=== PATIENT | male | born 1940 | race Caucasian/White ===

== ENCOUNTER 2016-12-27 12:24 | Outpatient (CLI) | payer MEDICARE, BC ==
[~2016-12-27] VITALS: Ht 185.4 cm; Wt 134.6 kg
[2016-12-27] VITALS (9 sets, daily range): BP systolic 115–146; BP diastolic 71–96; PULSE 63–85
[~2016-12-27 12:24] MED LIST: AMIODARONE PO; AMLOPIDINE; AMOXICILLIN 50500 MG PO; ASPIRIN 32325 MG/TAB PO; ASPIRIN 81M81 MG/TA2 PO; BUFFERED ASPIR325 M1 PO; CLOPIDOGREL; COZAAR100 MG PO; CRESTOR20 MG PO; ELIQUIS 5MG PO; FISH OIL CONC1000 MG PO; FLOMAX 0.40.4 MG/CAP PO; FOLIC ACID; IMODIUM 2MG CAPS2 MG PO; IRON; LASIX 40MG TABL40 MG PO; LISINOPRIL; MAX-EPA1000 MG PO; MULTIPLE VITAMI1 TAB PO; MVI; NITROQUICK0.4 MG SL; NORVASC 10MG10 MG PO; PACERONE200 MG PO; PLAVIX 75MG TAB75 MG PO; PRADAXA75 MG PO; PROAIR HFA0.09 MG/AC IH; PULMICORT0.5 MG/2 M IH; TENORMIN 2525 MG/TAB PO; ULTRAM 50MG TAB50 MG PO; VITAMIN C1 TAB PO; VITAMIN C500 MG PO; XALATAN EYE DROPS OD; XALATAN EYE DROPS OP; ZESTRIL40 MG PO
[2016-12-27 12:57] LABS: HEMATOCRIT 40.8 % (42.0-52.0); HEMOGLOBIN 13.2 g/dl (13.5-18.0); MEAN CELL VOLUME 93 fl (80.0-100.0); MEAN CORPUSCULAR HEMOGLOBIN 30 pg (27.0-31.0); MEAN CORPUSCULAR HGB CONC 32 g/dl (33.0-37.0); MEAN PLATELET VOLUME 9.2 fl (7.4-10.4); PLATELET COUNT 250 K/mm3 (130-400); RED BLOOD COUNT 4.39 M/mm3 (4.20-5.60); REDCELL DISTRIBUTION WIDTH-CV 14.5 % (11.5-14.5); WHITE BLOOD COUNT 5.6 K/mm3 (4.8-10.8)
[2016-12-27 12:58] LABS: INR 1.5 (0.8-3.0); PROTHROMBIN TIME 16.3 SECONDS (9.7-12.8)
[2016-12-27 13:15] LABS: CALCIUM 9.2 mg/dL (8.4-10.2); CREATININE, serum 1.06 mg/dL (0.66-1.25); POTASSIUM 4.2 mmol/L (3.4-5.0)
[2016-12-27] MEDS ORDERED: TEMOVATE0.05% TP (13:19)
[2016-12-27] MEDS ORDERED: PLAVIX 75MG TAB75 MG PO (13:31)
[2016-12-27 13:35] LABS: TOTAL IRON BINDING CAPACITY 413 ug/dL (261-462)
== END 2016-12-27 15:00 | disposition home or self-care (01) ==
LOC: COL.VAS 12:24
PROVIDERS: Internal Medicine Cardiovascular Disease
DX: I48.0 Paroxysmal atrial fibrillation (principal); E78.5 Hyperlipidemia, unspecified; I10 Essential (primary) hypertension; R90.89 Other abnormal findings on diagnostic imaging of central nervous system; N40.0 Benign prostatic hyperplasia without lower urinary tract symptoms; I25.10 Atherosclerotic heart disease of native coronary artery without angina pectoris; R94.31 Abnormal electrocardiogram [ECG] [EKG]; Z98.890 Other specified postprocedural states; Z96.652 Presence of left artificial knee joint; Z90.49 Acquired absence of other specified parts of digestive tract; Z95.828 Presence of other vascular implants and grafts; Z82.49 Family history of ischemic heart disease and other diseases of the circulatory system
CPT/HCPCS: J2704; J7030

== ENCOUNTER 2017-01-07 12:57 | Emergency (ER) | payer MEDICARE, BC ==
[~2017-01-07] VITALS: Ht 185.4 cm; Wt 134.1 kg
[~2017-01-07 12:57] MED LIST changes: +TEMOVATE0.05% TP
[2017-01-07 13:00] VITALS: BP 137/64; TEMP 98.2
[2017-01-07] MEDS ORDERED: NORCO 325 MG-51 TAB PO (16:20)
[2017-01-07] MEDS ORDERED: FLEXERIL 1010 MG/TAB PO (16:20)
[2017-01-07 16:49] VITALS: PULSE 62
== END 2017-01-07 16:50 | disposition home or self-care (01) ==
LOC: COL.ER 12:57
DX: M54.5 Low back pain (principal); I48.91 Unspecified atrial fibrillation
CPT/HCPCS: J1170; J3360

== ENCOUNTER → 2017-07-18 | Outpatient (CLI) | payer MEDICARE, BC ==
[~2017-07-18] MED LIST changes: +FLEXERIL 1010 MG/TAB PO; +NORCO 325 MG-51 TAB PO
[2017-07-18 12:59] LABS: HEMATOCRIT 41.1 % (42.0-52.0); HEMOGLOBIN 13.6 g/dl (13.5-18.0); MEAN CELL VOLUME 94 fl (80.0-100.0); MEAN CORPUSCULAR HEMOGLOBIN 31 pg (27.0-31.0); MEAN CORPUSCULAR HGB CONC 33 g/dl (33.0-37.0); MEAN PLATELET VOLUME 9.3 fl (7.4-10.4); PLATELET COUNT 209 K/mm3 (130-400); RED BLOOD COUNT 4.36 M/mm3 (4.20-5.60); WHITE BLOOD COUNT 5.3 K/mm3 (4.8-10.8)
[2017-07-18 13:45] LABS: ERYTHROCYTE SEDIMENTATION RATE 11 mm/hr (0-30)
== END ==
LOC: COL.LAB 12:28
PROVIDERS: Orthopaedic Surgery
DX: M25.561 Pain in right knee (principal); Z96.651 Presence of right artificial knee joint

== ENCOUNTER 2018-01-28 14:08 | Emergency (ER) | payer MEDICARE, BC ==
[~2018-01-28] VITALS: Ht 185.4 cm; Wt 131.8 kg
[2018-01-28 14:12] VITALS: TEMP 98.2
[2018-01-28 15:12] LABS: BASO % 0.5 % (0.0-2.0); EOS # 0.4 (0.0-0.7); GRAN % 71.4 % (42.2-75.2); HEMOGLOBIN 11.9 g/dl (13.5-18.0); LYMPH # 1.2 (1.2-3.4); LYMPH % 14.2 % (20.0-51.0); MEAN CELL VOLUME 95 fl (80.0-100.0); MEAN CORPUSCULAR HEMOGLOBIN 31 pg (27.0-31.0); MEAN CORPUSCULAR HGB CONC 33 g/dl (33.0-37.0); MEAN PLATELET VOLUME 9.8 fl (7.4-10.4); MONO # 0.7 (0.1-0.6); MONO % 8.4 % (1.7-9.3); PLATELET COUNT 239 K/mm3 (130-400); RED BLOOD COUNT 3.79 M/mm3 (4.20-5.60); REDCELL DISTRIBUTION WIDTH-CV 15.5 % (11.5-14.5)
[2018-01-28 15:26] LABS: BILIRUBIN,TOTAL 0.8 mg/dL (0.0-1.0); C-REACTIVE PROTEIN 6.3 mg/dL (0.0-0.9); CALCIUM 8.3 mg/dL (8.4-10.2); CREATININE, serum 1.21 mg/dL (0.66-1.25); POTASSIUM 3.8 mmol/L (3.4-5.0); TOTAL PROTEIN 7.1 gm/dL (6.4-8.2)
[2018-01-28] MEDS ORDERED: ULTRAM 50MG TAB50 MG PO (16:05)
[2018-01-28 17:45] VITALS: BP 135/89; PULSE 60
== END 2018-01-28 17:51 | disposition home or self-care (01) ==
LOC: COL.ER 14:08
PROVIDERS: Family Medicine
DX: K80.50 Calculus of bile duct without cholangitis or cholecystitis without obstruction (principal); I88.0 Nonspecific mesenteric lymphadenitis; I48.91 Unspecified atrial fibrillation; I25.10 Atherosclerotic heart disease of native coronary artery without angina pectoris; Z95.5 Presence of coronary angioplasty implant and graft; Z90.89 Acquired absence of other organs
CPT/HCPCS: J7030; Q9967

== ENCOUNTER → 2018-01-29 | Outpatient (CLI) | payer MEDICARE, BC | LOC: COL.RAD 10:50 | DX: K76.0 Fatty (change of) liver, not elsewhere classified (principal) ==

== ENCOUNTER → 2018-02-13 | Outpatient (CLI) | payer MEDICARE, BC | LOC: COL.RAD 06:09 | DX: R10.9 Unspecified abdominal pain (principal) | CPT/HCPCS: A9537 ==

== ENCOUNTER → 2018-03-11 | Outpatient (CLI) | payer MEDICARE, BC | LOC: COL.RAD 10:21 | DX: Q43.8 Other specified congenital malformations of intestine (principal); Z53.8 Procedure and treatment not carried out for other reasons ==

== ENCOUNTER → 2018-03-13 | Outpatient (CLI) | payer MEDICARE, BC | LOC: COL.RAD 08:44 | DX: K57.30 Diverticulosis of large intestine without perforation or abscess without bleeding (principal); Z90.49 Acquired absence of other specified parts of digestive tract ==

== ENCOUNTER → 2018-05-17 | Outpatient (CLI) | payer MEDICARE, BC ==
[2018-05-17] VITALS (14 sets, daily range): BP systolic 124–160; BP diastolic 53–84; PULSE 62–83
[~2018-05-17] VITALS: Ht 185.4 cm; Wt 132.7 kg
[~2018-05-17] MED LIST changes: +ALDACTONE 100M100 MG PO; +AMOXIL125 MG PO; +CARAFATE 1GM1 G PO; +COZAAR 50MG50 MG/TAB PO; +EPA FISH OIL1 SGL PO; +K-DUR 10 MEQ T10 MEQ PO; -MAX-EPA1000 MG PO; +MULTIPLE VITAMI1 CAP PO; -MULTIPLE VITAMI1 TAB PO; +PRIL40 PO; +PRILOSEC 20MG20 MG PO; +SYNTHROID0.1 MG/TAB PO
[2018-05-17 10:09] LABS: INR 1.5 (0.8-3.0)
== END ==
LOC: COL.RAD 05-16 09:45
PROVIDERS: Internal Medicine Gastroenterology
DX: K70.11 Alcoholic hepatitis with ascites (principal); K70.2 Alcoholic fibrosis and sclerosis of liver; K92.1 Melena

== ENCOUNTER 2018-06-24 08:43 | Outpatient (CLI) | payer MEDICARE, BC ==
[~2018-06-24] VITALS: Ht 185.4 cm; Wt 119.9 kg
[~2018-06-24 08:43] MED LIST changes: +CIPRO 250MG TA250 MG PO; +COUMADIN 1MG1 MG/TAB PO; -NITROQUICK0.4 MG SL; +NITROSTAT0.4 MG/TAB SL; +VITAMIN K0.1 MG PO
[2018-06-24 09:17] VITALS: BP 145/67; PULSE 90
[2018-06-24 11:20] VITALS: BP 124/51; PULSE 62; TEMP 97
[2018-06-24 12:45] VITALS: BP 111/53; PULSE 61; TEMP 98.6
== END 2018-06-24 15:00 | disposition home or self-care (01) ==
LOC: COL.RAD 08:43
DX: K70.31 Alcoholic cirrhosis of liver with ascites (principal)
CPT/HCPCS: P9047

== ENCOUNTER 2018-07-04 08:39 | Outpatient (CLI) | payer MEDICARE, BC ==
[~2018-07-04] VITALS: Ht 185.4 cm; Wt 121.5 kg
[2018-07-04 09:07] VITALS: BP 125/70; PULSE 81
[2018-07-04 11:18] VITALS: BP 123/41; PULSE 64; TEMP 97.9
[2018-07-04 13:05] VITALS: BP 117/46; PULSE 64; TEMP 98.1
[2018-07-04 13:19] LABS: PERITONEAL -POLYMORPHONUCLEAR 7.3 % (0-25); PERITONEAL FLUID RBC 2000 /mm3 (0-0)
== END 2018-07-04 13:33 | disposition home or self-care (01) ==
LOC: COL.RAD 08:39
PROVIDERS: Internal Medicine Gastroenterology
DX: R18.8 Other ascites (principal)
CPT/HCPCS: P9047

== ENCOUNTER 2018-07-15 12:48 | Outpatient (CLI) | payer MEDICARE, BC ==
[~2018-07-15] VITALS: Ht 185.4 cm; Wt 83.5 kg
[2018-07-15 13:13] VITALS: BP 144/66; PULSE 91
[2018-07-15 16:53] VITALS: BP 136/62; PULSE 88; TEMP 98
== END 2018-07-15 16:56 | disposition home or self-care (01) ==
LOC: COL.RAD 12:48
DX: K74.69 Other cirrhosis of liver (principal)
CPT/HCPCS: P9047

== ENCOUNTER 2018-07-26 12:40 | Outpatient (CLI) | payer MEDICARE, BC ==
[~2018-07-26] VITALS: Ht 185.4 cm; Wt 118.7 kg
[2018-07-26 13:01] VITALS: BP 148/72; PULSE 81
[2018-07-26 14:00] VITALS: BP 139/68; PULSE 76; TEMP 97.4
[2018-07-26 14:39] LABS: PERITONEAL -POLYMORPHONUCLEAR 5.4 % (0-25); PERITONEAL FLUID RBC 1000 /mm3 (0-0)
== END 2018-07-26 15:50 | disposition home or self-care (01) ==
LOC: COL.RAD 12:40
PROVIDERS: Internal Medicine Gastroenterology
DX: K74.69 Other cirrhosis of liver (principal)
CPT/HCPCS: P9047

== ENCOUNTER 2018-08-14 09:41 | Outpatient (CLI) | payer MEDICARE, BC ==
[~2018-08-14] VITALS: Ht 185.4 cm; Wt 116.4 kg
[2018-08-14 10:06] VITALS: BP 143/73; PULSE 79
[2018-08-14 12:11] VITALS: BP 112/51; PULSE 78; TEMP 97.2
[2018-08-14 12:41] LABS: PERITONEAL -POLYMORPHONUCLEAR 6.1 % (0-25); PERITONEAL FLUID RBC 1000 /mm3 (0-0)
== END 2018-08-14 14:36 | disposition home or self-care (01) ==
LOC: COL.RAD 09:41
PROVIDERS: Internal Medicine Gastroenterology
DX: K74.69 Other cirrhosis of liver (principal)
CPT/HCPCS: P9047

== ENCOUNTER 2018-08-23 09:35 | Outpatient (CLI) | payer MEDICARE, BC ==
[~2018-08-23] VITALS: Ht 185.4 cm; Wt 115.5 kg
[2018-08-23 09:51] VITALS: BP 141/70; PULSE 69
[2018-08-23 11:30] VITALS: BP 117/49; PULSE 57; TEMP 97.7
[2018-08-23 11:31] LABS: PERITONEAL -POLYMORPHONUCLEAR 5.5 % (0-25); PERITONEAL FLUID RBC 0 /mm3 (0-0)
== END 2018-08-23 13:15 | disposition home or self-care (01) ==
LOC: COL.RAD 09:35
PROVIDERS: Internal Medicine Gastroenterology
DX: K74.69 Other cirrhosis of liver (principal)
CPT/HCPCS: P9047

== ENCOUNTER 2018-09-02 09:41 | Outpatient (CLI) | payer MEDICARE, BC ==
[~2018-09-02] VITALS: Ht 185.4 cm; Wt 117.0 kg
[2018-09-02 09:55] VITALS: BP 145/70; PULSE 83
[2018-09-02 11:20] VITALS: BP 120/42; PULSE 57; TEMP 97.3
[2018-09-02 13:41] VITALS: BP 107/36; PULSE 57
--- NOTE | 2018-09-02 13:50 | NUR ---
Pt pina albumin well. Pt discharged per ambulation by nurse with .
== END 2018-09-02 14:25 | disposition home or self-care (01) ==
LOC: COL.RAD 09:41
PROVIDERS: Internal Medicine Gastroenterology
DX: K74.69 Other cirrhosis of liver (principal)
CPT/HCPCS: P9047

== ENCOUNTER 2018-09-13 09:30 | Outpatient (CLI) | payer MEDICARE, BC ==
[~2018-09-13] VITALS: Ht 185.4 cm; Wt 110.0 kg
[2018-09-13 10:07] VITALS: BP 154/72; PULSE 76
[2018-09-13 11:20] VITALS: BP 138/52; PULSE 65; TEMP 97.5
[2018-09-13 11:38] LABS: PERITONEAL -POLYMORPHONUCLEAR 6.9 % (0-25); PERITONEAL FLUID RBC 0 /mm3 (0-0)
[2018-09-13 13:02] VITALS: BP 118/43; PULSE 62; TEMP 97.4
== END 2018-09-13 13:10 | disposition home or self-care (01) ==
LOC: COL.RAD 09:30
PROVIDERS: Internal Medicine Gastroenterology
DX: K74.69 Other cirrhosis of liver (principal)
CPT/HCPCS: P9047

== ENCOUNTER 2018-09-23 09:48 | Outpatient (CLI) | payer MEDICARE, BC ==
[~2018-09-23] VITALS: Ht 185.4 cm; Wt 121.2 kg
[2018-09-23 10:04] VITALS: BP 136/78; PULSE 64
[2018-09-23 12:10] LABS: PERITONEAL -POLYMORPHONUCLEAR 8.2 % (0-25); PERITONEAL FLUID RBC 0 /mm3 (0-0)
[2018-09-23 12:30] VITALS: BP 119/46; PULSE 60; TEMP 97.5
== END 2018-09-23 14:35 | disposition home or self-care (01) ==
LOC: COL.RAD 09:48 → EUO 09:48 → COL.RAD 14:35
PROVIDERS: Internal Medicine Gastroenterology
DX: K74.69 Other cirrhosis of liver (principal)
CPT/HCPCS: P9047

== ENCOUNTER 2018-10-03 07:45 | Outpatient (CLI) | payer MEDICARE, BC ==
[~2018-10-03] VITALS: Ht 185.4 cm; Wt 112.5 kg
[2018-10-03 10:30] VITALS: BP 140/62; PULSE 68; TEMP 98
[2018-10-04 15:25] LABS: PERITONEAL -POLYMORPHONUCLEAR 8.9 % (0-25); PERITONEAL FLUID RBC 0 /mm3 (0-0)
== END 2018-10-03 14:15 | disposition home or self-care (01) ==
LOC: COL.RAD 07:45
PROVIDERS: Internal Medicine Gastroenterology
DX: K74.60 Unspecified cirrhosis of liver (principal)
CPT/HCPCS: P9047

== ENCOUNTER 2018-10-14 09:46 | Outpatient (CLI) | payer MEDICARE, BC ==
[~2018-10-14] VITALS: Ht 185.4 cm; Wt 123.6 kg
[2018-10-14 10:05] VITALS: BP 134/68; PULSE 73
[2018-10-14 11:56] LABS: PERITONEAL -POLYMORPHONUCLEAR 9.3 % (0-25); PERITONEAL FLUID RBC 0 /mm3 (0-0)
[2018-10-14 12:10] VITALS: BP 150/67; PULSE 66; TEMP 97.9
[2018-10-14 12:39] VITALS: BP 120/59; PULSE 67
[2018-10-14 13:17] VITALS: BP 122/52; PULSE 63; TEMP 97
[2018-10-14 13:52] VITALS: BP 134/54; PULSE 63; TEMP 98
== END 2018-10-14 14:00 | disposition home or self-care (01) ==
LOC: COL.RAD 09:46
PROVIDERS: Internal Medicine Gastroenterology
DX: K74.69 Other cirrhosis of liver (principal)
CPT/HCPCS: P9047

== ENCOUNTER 2018-10-23 08:44 | Outpatient (CLI) | payer MEDICARE, BC ==
[~2018-10-23] VITALS: Ht 185.4 cm; Wt 121.7 kg
[2018-10-23 08:59] VITALS: BP 148/67; PULSE 80
[2018-10-23] MEDS ORDERED: LASIX 40MG TABL40 MG PO (08:59)
[2018-10-23 11:14] VITALS: BP 106/47; PULSE 57; TEMP 98
[2018-10-23 11:22] LABS: PERITONEAL -POLYMORPHONUCLEAR 10.6 % (0-25); PERITONEAL FLUID RBC 0 /mm3 (0-0)
== END 2018-10-23 15:05 | disposition home or self-care (01) ==
LOC: COL.RAD 08:44
PROVIDERS: Internal Medicine Gastroenterology
DX: K74.69 Other cirrhosis of liver (principal)
CPT/HCPCS: P9047

== ENCOUNTER 2018-10-31 09:33 | Outpatient (CLI) | payer MEDICARE, BC ==
[~2018-10-31] VITALS: Ht 185.4 cm; Wt 118.1 kg
[2018-10-31 10:01] VITALS: BP 145/55; PULSE 75
[2018-10-31 11:48] LABS: PERITONEAL -POLYMORPHONUCLEAR 6.9 % (0-25); PERITONEAL FLUID RBC 0 /mm3 (0-0)
[2018-10-31 12:11] VITALS: BP 111/61; PULSE 60; TEMP 97.6
== END 2018-10-31 13:50 | disposition home or self-care (01) ==
LOC: COL.RAD 09:33
PROVIDERS: Internal Medicine Gastroenterology
DX: K74.69 Other cirrhosis of liver (principal)
CPT/HCPCS: P9047

== ENCOUNTER 2018-11-11 10:48 | Outpatient (CLI) | payer MEDICARE, BC ==
[~2018-11-11] VITALS: Ht 185.4 cm; Wt 121.7 kg
[2018-11-11 11:49] VITALS: BP 153/63; PULSE 84
--- NOTE | 2018-11-11 14:15 | NUR ---
Report taken from FOL Ayala in Radiology. Vital Signs BP: 125/40 O2: 100% HR: 69 Fluid removed was 9500 mL. Procedure done by Dr. Fishman. Color: yellow
[2018-11-11 14:16] LABS: PERITONEAL FLUID RBC 1000 /mm3 (0-0)
--- NOTE | 2018-11-11 14:17 | NUR ---
URINE COLOR YELLOW AND CLEAR
== END 2018-11-11 16:32 | disposition home or self-care (01) ==
LOC: COL.RAD 10:48
PROVIDERS: Internal Medicine Gastroenterology
DX: K74.69 Other cirrhosis of liver (principal)
CPT/HCPCS: P9047

== ENCOUNTER 2018-11-22 11:36 | Outpatient (CLI) | payer MEDICARE, BC ==
[~2018-11-22] VITALS: Ht 185.4 cm; Wt 121.8 kg
[2018-11-22 12:06] VITALS: BP 138/65; PULSE 78
[2018-11-22 14:28] LABS: PERITONEAL -POLYMORPHONUCLEAR 12.2 % (0-25); PERITONEAL FLUID RBC 1000 /mm3 (0-0)
[2018-11-22 14:31] VITALS: BP 120/40; PULSE 66; TEMP 97.6
== END 2018-11-22 16:00 | disposition home or self-care (01) ==
LOC: COL.RAD 11:36
PROVIDERS: Internal Medicine Gastroenterology
DX: K74.69 Other cirrhosis of liver (principal); K76.6 Portal hypertension
CPT/HCPCS: P9047

== ENCOUNTER 2018-12-03 09:40 | Outpatient (CLI) | payer MEDICARE, BC ==
[~2018-12-03] VITALS: Ht 185.4 cm; Wt 114.0 kg
[2018-12-03 10:28] VITALS: BP 143/69; PULSE 90
--- NOTE | 2018-12-03 10:36 | NUR ---
PT TAKEN TO ULTRASOUND, HE WILL THEN GO TO FOR ALBUMIN INFUSION
[2018-12-03 11:50] LABS: PERITONEAL -POLYMORPHONUCLEAR 14.7 % (0-25); PERITONEAL FLUID RBC 0 /mm3 (0-0)
[2018-12-03 12:35] VITALS: BP 105/40; PULSE 64; TEMP 97.4
== END 2018-12-03 15:16 | disposition home or self-care (01) ==
LOC: COL.RAD 09:40
PROVIDERS: Internal Medicine Gastroenterology
DX: K74.69 Other cirrhosis of liver (principal)
CPT/HCPCS: P9047

== ENCOUNTER 2018-12-13 09:34 | Outpatient (CLI) | payer MEDICARE, BC ==
[~2018-12-13] VITALS: Ht 185.4 cm; Wt 112.3 kg
[2018-12-13 09:50] VITALS: BP 132/56; PULSE 93
[2018-12-13 12:00] VITALS: BP 103/69; PULSE 87; TEMP 98.4
[2018-12-13 12:36] LABS: PERITONEAL -POLYMORPHONUCLEAR 11.4 % (0-25); PERITONEAL FLUID RBC 0 /mm3 (0-0)
== END 2018-12-13 14:30 | disposition home or self-care (01) ==
LOC: COL.RAD 09:34
PROVIDERS: Internal Medicine Gastroenterology
DX: K74.69 Other cirrhosis of liver (principal)
CPT/HCPCS: P9047

== ENCOUNTER 2018-12-23 09:39 | Outpatient (CLI) | payer MEDICARE, BC ==
[~2018-12-23] VITALS: Ht 185.4 cm; Wt 114.1 kg
[2018-12-23 09:55] VITALS: BP 140/70; PULSE 90
[2018-12-23 11:36] LABS: PERITONEAL -POLYMORPHONUCLEAR 11.7 % (0-25); PERITONEAL FLUID RBC 1000 /mm3 (0-0)
[2018-12-23 13:10] VITALS: BP 107/56; PULSE 75; TEMP 98
== END 2018-12-23 14:07 | disposition home or self-care (01) ==
LOC: COL.RAD 09:39
PROVIDERS: Internal Medicine Gastroenterology
DX: K74.69 Other cirrhosis of liver (principal)
CPT/HCPCS: P9047

== ENCOUNTER 2019-01-02 09:30 | Outpatient (CLI) | payer MEDICARE, BC ==
[~2019-01-02] VITALS: Ht 185.4 cm; Wt 116.1 kg
[2019-01-02 09:53] VITALS: BP 126/63; PULSE 85
[2019-01-02 12:04] LABS: PERITONEAL -POLYMORPHONUCLEAR 9.7 % (0-25); PERITONEAL FLUID RBC 0 /mm3 (0-0)
[2019-01-02 12:38] VITALS: BP 124/48; PULSE 61; TEMP 97.4
== END 2019-01-02 14:14 | disposition home or self-care (01) ==
LOC: COL.RAD 09:30
PROVIDERS: Internal Medicine Gastroenterology
DX: K74.69 Other cirrhosis of liver (principal)
CPT/HCPCS: P9047

== ENCOUNTER 2019-01-13 11:33 | Outpatient (CLI) | payer MEDICARE, BC ==
[~2019-01-13] VITALS: Ht 185.4 cm; Wt 115.3 kg
[2019-01-13 11:53] VITALS: BP 142/65; PULSE 76
[2019-01-13 13:21] LABS: PERITONEAL -POLYMORPHONUCLEAR 9.5 % (0-25); PERITONEAL FLUID RBC 1000 /mm3 (0-0)
[2019-01-13 13:32] VITALS: BP 135/47; PULSE 69; TEMP 98.6
== END 2019-01-13 15:17 | disposition home or self-care (01) ==
LOC: COL.RAD 11:33
PROVIDERS: Internal Medicine Gastroenterology
DX: K74.60 Unspecified cirrhosis of liver (principal)
CPT/HCPCS: P9047

== ENCOUNTER 2019-01-23 09:38 | Outpatient (CLI) | payer MEDICARE, BC ==
[~2019-01-23] VITALS: Ht 185.4 cm; Wt 125.9 kg
[2019-01-23 09:52] VITALS: BP 147/62; PULSE 90
[2019-01-23 11:46] VITALS: BP 136/47; PULSE 69; TEMP 97.6
[2019-01-23 12:15] LABS: PERITONEAL -POLYMORPHONUCLEAR 14.1 % (0-25); PERITONEAL FLUID RBC 1000 /mm3 (0-0)
== END 2019-01-23 14:01 | disposition home or self-care (01) ==
LOC: COL.RAD 09:38
PROVIDERS: Internal Medicine Gastroenterology
DX: K74.69 Other cirrhosis of liver (principal)
CPT/HCPCS: P9047

== ENCOUNTER 2019-02-03 09:54 | Outpatient (CLI) | payer MEDICARE, BC ==
[~2019-02-03] VITALS: Ht 185.4 cm; Wt 126.2 kg
[2019-02-03 10:16] VITALS: BP 129/62; PULSE 72
[2019-02-03 11:30] VITALS: BP 129/49; PULSE 70
[2019-02-03 11:45] LABS: PERITONEAL -POLYMORPHONUCLEAR 14.7 % (0-25); PERITONEAL FLUID RBC 1000 /mm3 (0-0)
--- NOTE | 2019-02-03 13:30 | NUR ---
INFUSION COMPLETED IV D'CD INTACT, PT DISCHARGED AMB. WITH
== END 2019-02-03 13:56 | disposition home or self-care (01) ==
LOC: COL.RAD 09:54
PROVIDERS: Internal Medicine Gastroenterology
DX: K74.69 Other cirrhosis of liver (principal)
CPT/HCPCS: P9047

== ENCOUNTER 2019-02-13 09:27 | Outpatient (CLI) | payer MEDICARE, BC ==
[~2019-02-13] VITALS: Ht 185.4 cm; Wt 124.4 kg
[2019-02-13 09:58] VITALS: BP 130/69; PULSE 79
[2019-02-13 11:49] VITALS: PULSE 67; TEMP 97.7
--- NOTE | 2019-02-13 13:30 | NUR ---
INFUSION COMPLETED, IV D'CD INTACT, PT DISCHARGED AMB. WITH
[2019-02-13 13:52] LABS: PERITONEAL -POLYMORPHONUCLEAR 11.2 % (0-25); PERITONEAL FLUID RBC 0 /mm3 (0-0)
== END 2019-02-13 15:51 | disposition home or self-care (01) ==
LOC: COL.RAD 09:27
PROVIDERS: Internal Medicine Gastroenterology
DX: K74.69 Other cirrhosis of liver (principal)
CPT/HCPCS: P9047

== ENCOUNTER 2019-02-24 08:44 | Outpatient (CLI) | payer MEDICARE, BC ==
[~2019-02-24] VITALS: Ht 185.4 cm; Wt 119.0 kg
[2019-02-24 08:59] VITALS: BP 145/64; PULSE 89
[2019-02-24 11:20] VITALS: BP 133/42; PULSE 71; TEMP 97.5
--- NOTE | 2019-02-24 11:50 | NUR ---
PT AMB. FROM ULTRASOUND WITH TECH FOR ALBUMIN INFUSION, HAS INT TO LEFT HAND FLUSHES WELL. INFUSION AT 180CC/HR, TOLERATED WELL, NO C/O, DISCHARGED AMB. WTIH AFTER INFUSION
== END 2019-02-24 15:00 | disposition home or self-care (01) ==
LOC: COL.RAD 08:44
DX: K74.69 Other cirrhosis of liver (principal)
CPT/HCPCS: P9047

== ENCOUNTER 2019-03-06 08:44 | Outpatient (CLI) | payer MEDICARE, BC ==
[~2019-03-06] VITALS: Ht 185.4 cm; Wt 118.4 kg
[2019-03-06] MEDS ORDERED: FOLIC ACID 11 MG/TA1 PO (09:13)
[2019-03-06 09:16] VITALS: BP 142/67; PULSE 83
[2019-03-06 11:38] VITALS: BP 123/61; PULSE 64; TEMP 97.9
[2019-03-06 13:22] LABS: PERITONEAL -POLYMORPHONUCLEAR 11.5 % (0-25); PERITONEAL FLUID RBC 1000 /mm3 (0-0)
== END 2019-03-06 12:32 | disposition home or self-care (01) ==
LOC: COL.RAD 08:44
PROVIDERS: Internal Medicine Gastroenterology
DX: K74.69 Other cirrhosis of liver (principal)
CPT/HCPCS: P9047

== ENCOUNTER → 2019-03-07 | Outpatient (CLI) | payer MEDICARE, BC ==
[~2019-03-07] MED LIST changes: +FOLIC ACID 11 MG/TA1 PO
== END ==
LOC: MC.RAD 03-06 14:00
DX: N62 Hypertrophy of breast (principal); N64.4 Mastodynia

== ENCOUNTER 2019-03-17 09:56 | Outpatient (CLI) | payer MEDICARE, BC ==
[~2019-03-17] VITALS: Ht 185.4 cm; Wt 109.1 kg
[2019-03-17 10:13] VITALS: BP 134/70; PULSE 87
[2019-03-17 12:29] VITALS: BP 11/46; PULSE 65
[2019-03-17 13:00] LABS: PERITONEAL FLUID RBC 1000 /mm3 (0-0)
--- NOTE | 2019-03-17 13:16 | NUR ---
INT discontinued intact.
== END 2019-03-17 13:17 | disposition home or self-care (01) ==
LOC: COL.RAD 09:56
PROVIDERS: Internal Medicine Gastroenterology
DX: R18.8 Other ascites (principal); K74.60 Unspecified cirrhosis of liver
CPT/HCPCS: P9047

== ENCOUNTER 2019-03-28 09:31 | Outpatient (CLI) | payer MEDICARE, BC ==
[~2019-03-28] VITALS: Ht 185.4 cm; Wt 108.3 kg
[2019-03-28 09:59] VITALS: BP 124/50; PULSE 88
[2019-03-28 11:27] LABS: PERITONEAL -POLYMORPHONUCLEAR 15.3 % (0-25); PERITONEAL FLUID RBC 1000 /mm3 (0-0)
[2019-03-28 12:33] VITALS: BP 124/52; PULSE 81
[2019-03-28 12:34] VITALS: BP 124/52; PULSE 81; TEMP 97.3
== END 2019-03-28 12:58 | disposition home or self-care (01) ==
LOC: COL.RAD 09:31
PROVIDERS: Internal Medicine Gastroenterology
DX: K74.60 Unspecified cirrhosis of liver (principal)
CPT/HCPCS: P9047

== ENCOUNTER 2019-04-04 09:01 | Day surgery (SDC) | payer MEDICARE, BC ==
[2019-04-04] VITALS (9 sets, daily range): BP systolic 106–125; BP diastolic 50–62; PULSE 82–105
[~2019-04-04] VITALS: Ht 185.4 cm; Wt 112.0 kg
[2019-04-04 09:34] LABS: MEAN CELL VOLUME 99 fl (80.0-100.0); MEAN CORPUSCULAR HGB CONC 33 g/dl (33.0-37.0); PLATELET COUNT 130 K/mm3 (130-400); RED BLOOD COUNT 2.67 M/mm3 (4.20-5.60); REDCELL DISTRIBUTION WIDTH-CV 15.4 % (11.5-14.5)
[2019-04-04 09:35] LABS: HEMATOCRIT 26.5 % (42.0-52.0); HEMOGLOBIN 8.7 g/dl (13.5-18.0); MEAN CORPUSCULAR HEMOGLOBIN 33 pg (27.0-31.0)
[2019-04-04 09:39] LABS: INR 2.1 (0.8-3.0); PROTHROMBIN TIME 24.9 SECONDS (9.7-12.8)
[2019-04-04] MEDS ORDERED: COUMADIN 3MG3 MG/TAB PO (09:52)
[2019-04-04 10:00] LABS: CALCIUM 8.6 mg/dL (8.4-10.2); CREATININE, serum 1.36 (0.66-1.25); POTASSIUM 4.1 mmol/L (3.4-5.0)
[2019-04-04] MEDS ORDERED: BETAPACE 80MG80 MG PO (10:08)
--- NOTE | 2019-04-04 10:23 | NUR ---
Report received from Miriam Diaz.
--- NOTE | 2019-04-04 12:15 | NUR ---
Discharge instructions given to pt.Pt verbalizes understanding.INT removed,catheter tip intact.Pt escorted out via wheelchair by this nurse.
== END 2019-04-04 12:56 | disposition home or self-care (01) ==
LOC: COL.CAR 09:01
PROVIDERS: Internal Medicine Cardiovascular Disease
DX: I48.0 Paroxysmal atrial fibrillation (principal); I08.1 Rheumatic disorders of both mitral and tricuspid valves; N40.0 Benign prostatic hyperplasia without lower urinary tract symptoms; I25.10 Atherosclerotic heart disease of native coronary artery without angina pectoris; E78.5 Hyperlipidemia, unspecified; K74.60 Unspecified cirrhosis of liver; I10 Essential (primary) hypertension; G47.33 Obstructive sleep apnea (adult) (pediatric); G89.29 Other chronic pain; M19.90 Unspecified osteoarthritis, unspecified site; Z96.653 Presence of artificial knee joint, bilateral; Z88.8 Allergy status to other drugs, medicaments and biological substances; Z79.01 Long term (current) use of anticoagulants; Z87.891 Personal history of nicotine dependence; Z82.49 Family history of ischemic heart disease and other diseases of the circulatory system
CPT/HCPCS: J2250; J2704; J7120

== ENCOUNTER 2019-04-08 09:29 | Outpatient (CLI) | payer MEDICARE, BC ==
[~2019-04-08] VITALS: Ht 185.4 cm; Wt 107.2 kg
[~2019-04-08 09:29] MED LIST changes: +BETAPACE 80MG80 MG PO; +COUMADIN 3MG3 MG/TAB PO
[2019-04-08] MEDS ORDERED: BETAPACE 80MG80 MG PO (09:41)
[2019-04-08 09:45] VITALS: BP 137/57; PULSE 59
[2019-04-08 13:04] VITALS: BP 115/74; PULSE 59; TEMP 97.2
[2019-04-08 15:01] LABS: PERITONEAL -POLYMORPHONUCLEAR 11.8 % (0-25); PERITONEAL FLUID RBC 1000 /mm3 (0-0)
== END 2019-04-08 13:05 | disposition home or self-care (01) ==
LOC: COL.RAD 09:29
PROVIDERS: Internal Medicine Gastroenterology
DX: K74.69 Other cirrhosis of liver (principal)
CPT/HCPCS: P9047

== ENCOUNTER 2019-04-18 09:40 | Outpatient (CLI) | payer MEDICARE, BC ==
[~2019-04-18] VITALS: Ht 185.4 cm; Wt 113.8 kg
[2019-04-18 10:01] VITALS: BP 127/65; PULSE 83
[2019-04-18 11:12] LABS: PERITONEAL -POLYMORPHONUCLEAR 14.4 % (0-25); PERITONEAL FLUID RBC 1000 /mm3 (0-0)
[2019-04-18 11:30] VITALS: BP 127/57; PULSE 76; TEMP 97.5
== END 2019-04-18 13:33 | disposition home or self-care (01) ==
LOC: COL.RAD 09:40
PROVIDERS: Internal Medicine Gastroenterology
DX: K74.69 Other cirrhosis of liver (principal)
CPT/HCPCS: P9047

== ENCOUNTER 2019-04-28 09:24 | Outpatient (CLI) | payer MEDICARE, BC ==
[~2019-04-28] VITALS: Ht 185.4 cm; Wt 106.0 kg
[2019-04-28 09:42] VITALS: BP 125/86; PULSE 99
[2019-04-28 11:07] LABS: PERITONEAL -POLYMORPHONUCLEAR 13.9 % (0-25); PERITONEAL FLUID RBC 1000 /mm3 (0-0)
[2019-04-28 11:14] VITALS: BP 119/45; PULSE 76; TEMP 97.3
== END 2019-04-28 13:05 | disposition home or self-care (01) ==
LOC: COL.RAD 09:24
PROVIDERS: Internal Medicine Gastroenterology
DX: R18.8 Other ascites (principal)
CPT/HCPCS: P9047

== ENCOUNTER 2019-05-09 09:32 | Outpatient (CLI) | payer MEDICARE, BC ==
[~2019-05-09] VITALS: Ht 185.4 cm; Wt 105.4 kg
[2019-05-09 09:57] VITALS: BP 116/60; PULSE 96
[2019-05-09 11:42] LABS: PERITONEAL -POLYMORPHONUCLEAR 14.4 % (0-25); PERITONEAL FLUID RBC 2000 /mm3 (0-0)
[2019-05-09 11:45] VITALS: BP 104/41; PULSE 75; TEMP 97.4
== END 2019-05-09 12:40 | disposition home or self-care (01) ==
LOC: COL.RAD 09:32
PROVIDERS: Internal Medicine Gastroenterology
DX: K74.69 Other cirrhosis of liver (principal)
CPT/HCPCS: P9047

== ENCOUNTER 2019-05-23 10:52 | Outpatient (CLI) | payer MEDICARE, BC ==
[~2019-05-23] VITALS: Ht 185.4 cm; Wt 106.8 kg
[2019-05-23 11:16] VITALS: BP 138/67; PULSE 95
[2019-05-23 13:53] LABS: PERITONEAL -POLYMORPHONUCLEAR 11.7 % (0-25); PERITONEAL FLUID RBC 3000 /mm3 (0-0)
[2019-05-23 14:19] VITALS: BP 172/52; PULSE 97; TEMP 97.4
== END 2019-05-23 15:16 | disposition home or self-care (01) ==
LOC: COL.RAD 10:52
PROVIDERS: Internal Medicine Gastroenterology
DX: K70.31 Alcoholic cirrhosis of liver with ascites (principal); R16.1 Splenomegaly, not elsewhere classified
CPT/HCPCS: P9047

== ENCOUNTER → 2019-06-03 | Outpatient (CLI) | payer MEDICARE, BC ==
[~2019-06-03] VITALS: Ht 185.4 cm; Wt 114.6 kg
[2019-06-03 09:57] VITALS: BP 140/77; PULSE 93
[2019-06-03 12:33] LABS: PERITONEAL -POLYMORPHONUCLEAR 13.7 % (0-25); PERITONEAL FLUID RBC 1000 /mm3 (0-0)
[2019-06-03 13:04] VITALS: BP 135/64; PULSE 81; TEMP 97.4
== END ==
LOC: COL.RAD 09:28
PROVIDERS: Internal Medicine Gastroenterology
DX: K74.69 Other cirrhosis of liver (principal)
CPT/HCPCS: P9047

== ENCOUNTER 2019-06-13 09:39 | Outpatient (CLI) | payer MEDICARE, BC ==
[~2019-06-13] VITALS: Ht 185.4 cm; Wt 114.4 kg
[2019-06-13 09:57] VITALS: BP 135/59; PULSE 101
[2019-06-13 10:49] LABS: PERITONEAL -POLYMORPHONUCLEAR 15.6 % (0-25); PERITONEAL FLUID RBC 2000 /mm3 (0-0)
[2019-06-13 12:35] VITALS: BP 104/46; PULSE 98; TEMP 97.8
== END 2019-06-13 13:50 | disposition home or self-care (01) ==
LOC: COL.RAD 09:39
PROVIDERS: Internal Medicine Gastroenterology
DX: K74.69 Other cirrhosis of liver (principal)
CPT/HCPCS: P9047

== ENCOUNTER 2019-06-25 09:35 | Outpatient (CLI) | payer MEDICARE, BC ==
[~2019-06-25] VITALS: Ht 185.4 cm; Wt 106.6 kg
[2019-06-25 09:51] VITALS: BP 127/69; PULSE 92
[2019-06-25] MEDS ORDERED: PEPCID 20MG TAB20 MG PO (09:58)
[2019-06-25] MEDS ORDERED: BETAPACE 80MG80 MG PO (09:58)
[2019-06-25 11:14] LABS: PERITONEAL FLUID RBC 1000 /mm3 (0-0)
[2019-06-25 12:32] VITALS: BP 91/60; PULSE 79
--- NOTE | 2019-06-25 14:30 | NUR ---
PT is tolerating albumin infusion well, paracentesis puncture site visualized, it is covered with a dry and clean bandaid, no bleeding or other drainage noted.
== END 2019-06-25 14:56 | disposition home or self-care (01) ==
LOC: COL.RAD 09:35
PROVIDERS: Internal Medicine Gastroenterology
DX: K74.69 Other cirrhosis of liver (principal)
CPT/HCPCS: P9047

== ENCOUNTER 2019-07-07 09:26 | Outpatient (CLI) | payer MEDICARE, BC ==
[~2019-07-07] VITALS: Ht 185.4 cm; Wt 113.4 kg
[~2019-07-07 09:26] MED LIST changes: +PEPCID 20MG TAB20 MG PO
[2019-07-07 09:49] VITALS: BP 111/60; PULSE 99
[2019-07-07 12:29] LABS: PERITONEAL -POLYMORPHONUCLEAR 15.2 % (0-25); PERITONEAL FLUID RBC 1000 /mm3 (0-0)
[2019-07-07 12:30] VITALS: BP 104/50; PULSE 75; TEMP 97.5
== END 2019-07-07 14:29 | disposition home or self-care (01) ==
LOC: COL.RAD 09:26
PROVIDERS: Internal Medicine Gastroenterology
DX: K74.69 Other cirrhosis of liver (principal)
CPT/HCPCS: P9047

== ENCOUNTER 2019-07-21 09:19 | Outpatient (CLI) | payer MEDICARE, BC ==
[~2019-07-21] VITALS: Ht 185.4 cm; Wt 114.7 kg
[2019-07-21 09:57] VITALS: BP 120/71; PULSE 90
[2019-07-21 11:42] VITALS: BP 122/50; PULSE 78; TEMP 98.2
[2019-07-21 11:55] LABS: PERITONEAL -POLYMORPHONUCLEAR 11.6 % (0-25); PERITONEAL FLUID RBC 1000 /mm3 (0-0)
== END 2019-07-21 14:13 | disposition home or self-care (01) ==
LOC: COL.RAD 09:19
PROVIDERS: Internal Medicine Gastroenterology
DX: K74.69 Other cirrhosis of liver (principal)
CPT/HCPCS: P9047

== ENCOUNTER 2019-08-04 08:47 | Outpatient (CLI) | payer MEDICARE, BC ==
[~2019-08-04] VITALS: Ht 185.4 cm; Wt 104.8 kg
[2019-08-04 09:03] VITALS: BP 149/70; PULSE 99
[2019-08-04 11:42] LABS: PERITONEAL FLUID RBC 1000 /mm3 (0-0)
[2019-08-04 12:58] VITALS: BP 125/59; PULSE 72; TEMP 97.7
== END 2019-08-04 12:59 | disposition home or self-care (01) ==
LOC: COL.RAD 08:47
PROVIDERS: Internal Medicine Gastroenterology
DX: K74.69 Other cirrhosis of liver (principal)
CPT/HCPCS: P9047

== ENCOUNTER 2019-08-18 09:35 | Outpatient (CLI) | payer MEDICARE, BC ==
[~2019-08-18] VITALS: Ht 185.4 cm; Wt 103.6 kg
[2019-08-18 10:11] VITALS: BP 146/76; PULSE 86
[2019-08-18 11:48] LABS: PERITONEAL -POLYMORPHONUCLEAR 14.1 % (0-25); PERITONEAL FLUID RBC 1000 /mm3 (0-0)
[2019-08-18 13:25] VITALS: BP 117/96; PULSE 73; TEMP 97.4
== END 2019-08-18 13:26 | disposition home or self-care (01) ==
LOC: COL.RAD 09:35
PROVIDERS: Internal Medicine Gastroenterology
DX: K74.69 Other cirrhosis of liver (principal)
CPT/HCPCS: P9047

== ENCOUNTER 2019-09-02 09:30 | Outpatient (CLI) | payer MEDICARE, BC ==
[~2019-09-02] VITALS: Ht 185.4 cm; Wt 112.0 kg
[2019-09-02 09:43] VITALS: BP 142/44; PULSE 100
[2019-09-02 11:02] LABS: PERITONEAL FLUID RBC 2000 /mm3 (0-0)
[2019-09-02 11:25] VITALS: BP 128/65; PULSE 83; TEMP 97.4
== END 2019-09-02 14:09 | disposition home or self-care (01) ==
LOC: COL.RAD 09:30
PROVIDERS: Internal Medicine Gastroenterology
DX: K74.60 Unspecified cirrhosis of liver (principal)
CPT/HCPCS: P9047

== ENCOUNTER 2019-09-22 08:48 | Outpatient (CLI) | payer MEDICARE, BC ==
[~2019-09-22] VITALS: Ht 185.4 cm; Wt 111.4 kg
[2019-09-22 09:00] VITALS: BP 139/75; PULSE 98
[2019-09-22 10:39] VITALS: BP 148/72; PULSE 78; TEMP 97.7
[2019-09-22 11:01] LABS: PERITONEAL -POLYMORPHONUCLEAR 14.6 % (0-25); PERITONEAL FLUID RBC 3000 /mm3 (0-0)
--- NOTE | 2019-09-22 11:42 | NUR ---
PT WAS DRAINED BY DR LAIRD OF 7700CC YELLOW FLUID DURING HIS PARACENTESIS.
== END 2019-09-22 12:13 | disposition home or self-care (01) ==
LOC: EUO 08:48 → COL.RAD 08:48
PROVIDERS: Internal Medicine Gastroenterology
DX: R18.8 Other ascites (principal); K74.69 Other cirrhosis of liver
CPT/HCPCS: P9047

== ENCOUNTER 2019-10-13 11:33 | Outpatient (CLI) | payer MEDICARE, BC ==
[~2019-10-13] VITALS: Ht 185.4 cm; Wt 109.8 kg
[2019-10-13 11:51] VITALS: BP 158/81; PULSE 93
[2019-10-13 13:20] LABS: PERITONEAL -POLYMORPHONUCLEAR 11.7 % (0-25); PERITONEAL FLUID RBC 4000 /mm3 (0-0)
[2019-10-13 13:29] VITALS: BP 96/71; PULSE 86; TEMP 97.5
== END 2019-10-13 14:51 | disposition home or self-care (01) ==
LOC: COL.RAD 11:33
PROVIDERS: Internal Medicine Gastroenterology
DX: K74.69 Other cirrhosis of liver (principal)
CPT/HCPCS: P9047

== ENCOUNTER 2019-10-30 09:29 | Outpatient (CLI) | payer MEDICARE, BC ==
[~2019-10-30] VITALS: Ht 185.4 cm; Wt 107.5 kg
[2019-10-30 10:00] VITALS: BP 153/77; PULSE 93
[2019-10-30 12:43] VITALS: BP 129/75; PULSE 88; TEMP 97.4
[2019-10-30 13:47] LABS: PERITONEAL -POLYMORPHONUCLEAR 10.8 % (0-25); PERITONEAL FLUID RBC 2000 /mm3 (0-0)
[2019-11-03] MEDS ORDERED: ALDACTONE 25MG25 M1 PO (10:21)
[2019-11-03] MEDS ORDERED: LASIX 40MG TABL40 MG PO (10:22)
== END 2019-10-30 15:00 | disposition home or self-care (01) ==
LOC: COL.RAD 09:29
PROVIDERS: Internal Medicine Gastroenterology
DX: K74.60 Unspecified cirrhosis of liver (principal); R18.8 Other ascites
CPT/HCPCS: P9047

== ENCOUNTER 2020-01-15 06:31 | Outpatient (CLI) | payer MEDICARE, BC ==
[~2020-01-15] VITALS: Ht 185.4 cm; Wt 96.8 kg
[2020-01-15] VITALS (8 sets, daily range): BP systolic 98–177; BP diastolic 59–96; PULSE 89–113; TEMP 98.2
[~2020-01-15 06:31] MED LIST changes: +ALDACTONE 25MG25 M1 PO
[2020-01-15] MEDS ORDERED: COUMADIN 2MG2 MG/TAB PO (07:03)
[2020-01-15 07:11] LABS: INR 1.7 (0.8-3.0); PROTHROMBIN TIME 19.3 SECONDS (9.7-12.8)
--- NOTE | 2020-01-15 07:54 | NUR ---
Dr. De La Cruz is called and notified of patient's PT/INR levels pre-procedure.
--- NOTE | 2020-01-15 10:00 | NUR ---
PT TO [facility] FROM RADIOLOGY FOR ALBUMIN INFUSION AFTER PARA AND THORACENTESIS. PT IS UNCOMFORTABLE WITH LEFT EPIGASTRIC PAIN SINCE THORACENTESIS. LS PRESENT BILAT, CRACKLES IN LEFT BASE AND DIMINISHED IN RT BASE. BT HYPERACTIVE IN LUQ. ABD NONTENDER. PT IS GCS 15, RESPIRATIONS ARE REGULAR AND UNLABORED. AT BS.
[2020-01-15 10:03] LABS: GLUCOSE,PLEURAL FLUID 85 mg/dL; TOTAL PROTEIN,PLEURAL FLUID 3.6 gm/dL
[2020-01-15 10:11] LABS: PLEURAL FLUID RBC 151000 /mm3 (0-0); PLEURAL FLUID WBC 931 /mm3
[2020-01-15 10:22] LABS: PLEURAL FLUID COLOR RED
[2020-01-15 10:23] LABS: PLEURAL FLUID APPEARANCE OTHER
--- NOTE | 2020-01-15 12:15 | NUR ---
Pt is ready to go home after albumin infusions. Pt has remained uncomfortabl ewith persistent luq abd/left epigastric pain "like a gas pain" without relief from the morphine. Pt did not want any more pain med. his abd remained soft and nontender to palp. ls present bilat, with some crackles to lll, and diminished ls to rll. vitals remained stable, and pt was afebrile at time of departure. pt was able to ambulate around nursing station with some relief of epigastric pain. he and planned to monitor situation at home and planned to visit ER for any intolerable abd pain or sx of sob, fever, pain with inspiration. iv was dc'd with cath intact, dressing applied. pt to exit via wheelchair.
[2020-01-15] MEDS ORDERED: NORCO 325 MG-51 TAB PO (19:25)
[2020-01-15] MEDS ORDERED: PREDNISONE20 MG PO (19:25)
== END 2020-01-15 15:32 | disposition home or self-care (01) ==
LOC: EUO 06:31 → SDCO 06:31
PROVIDERS: Internal Medicine Pulmonary Disease
DX: J90 Pleural effusion, not elsewhere classified (principal); R18.8 Other ascites; I48.91 Unspecified atrial fibrillation; I27.20 Pulmonary hypertension, unspecified; Z87.891 Personal history of nicotine dependence; K74.69 Other cirrhosis of liver; G47.30 Sleep apnea, unspecified; Z88.6 Allergy status to analgesic agent; Z79.01 Long term (current) use of anticoagulants; Z95.5 Presence of coronary angioplasty implant and graft
CPT/HCPCS: J2270; P9047

== ENCOUNTER 2020-01-15 16:03 | Emergency (ER) | payer MEDICARE, BC ==
[~2020-01-15] VITALS: Ht 182.9 cm; Wt 90.9 kg
[~2020-01-15 16:03] MED LIST changes: +COUMADIN 2MG2 MG/TAB PO
[2020-01-15 16:17] VITALS: TEMP 97.7
[2020-01-15 17:30] LABS: BASO # 0.1 (0.0-0.2); BASO % 1.5 % (0.0-2.0); EOS # 0.2 (0.0-0.7); EOS % 4.3 % (0-4.0); GRAN # 2.8 (1.4-6.5); GRAN % 69.2 % (42.2-75.2); LYMPH # 0.6 (1.2-3.4); LYMPH % 14.5 % (20.0-51.0); MEAN CELL VOLUME 99 fl (80.0-100.0); MEAN CORPUSCULAR HGB CONC 33 g/dl (33.0-37.0); MEAN PLATELET VOLUME 9.2 fl (7.4-10.4); MONO # 0.4 (0.1-0.6); PLATELET COUNT 151 K/mm3 (130-400); RED BLOOD COUNT 2.88 M/mm3 (4.20-5.60); REDCELL DISTRIBUTION WIDTH-CV 15.8 % (11.5-14.5)
[2020-01-15 17:31] LABS: HEMATOCRIT 28.5 % (42.0-52.0); HEMOGLOBIN 9.4 g/dl (13.5-18.0); MEAN CORPUSCULAR HEMOGLOBIN 33 pg (27.0-31.0)
[2020-01-15 17:35] LABS: ALANINE AMINOTRANSFERASE 16 U/L (4-49); ALBUMIN 3.3 gm/dL (3.5-5.0); ALKALINE PHOSPHATASE 103 U/L (50-136); ANION GAP 7 mmol/L (7-16); AST,SGOT 35 U/L (15-37); BILIRUBIN,TOTAL 1.9 mg/dL (0.0-1.0); BLOOD UREA NITROGEN 41 mg/dL (9-20); CALCIUM 9.1 mg/dL (8.4-10.2); CARBON DIOXIDE 29 mmol/L (22-30); CHLORIDE 103 mmol/L (98-107); CREATININE, serum 0.99 (0.66-1.25); GLUCOSE 150 mg/dL (74-106); LIPASE 238 U/L (23-300); POTASSIUM 4.4 mmol/L (3.4-5.0); SODIUM 139 mmol/L (137-145); TOTAL PROTEIN 7.6 gm/dL (6.4-8.2)
[2020-01-15 17:54] LABS: TROPONIN-I < 0.012 ng/mL (0.000-0.035)
[2020-01-15 19:22] VITALS: BP 105/51; PULSE 90
[2020-01-15] MEDS ORDERED: NORCO 325 MG-51 TAB PO (19:25)
[2020-01-15] MEDS ORDERED: PREDNISONE20 MG PO (19:25)
== END 2020-01-15 19:38 | disposition home or self-care (01) ==
LOC: COL.ER 16:03
PROVIDERS: Emergency Medicine
DX: R10.31 Right lower quadrant pain (principal); R07.89 Other chest pain; I48.91 Unspecified atrial fibrillation; I10 Essential (primary) hypertension; I25.10 Atherosclerotic heart disease of native coronary artery without angina pectoris; Z79.01 Long term (current) use of anticoagulants; Z48.813 Encounter for surgical aftercare following surgery on the respiratory system; Z48.817 Encounter for surgical aftercare following surgery on the skin and subcutaneous tissue
CPT/HCPCS: J1170; J2405; J7512; Q9967

== ENCOUNTER 2020-02-12 16:09 | Observation (INO) | payer MEDICARE, BC ==
[~2020-02-12] VITALS: Ht 185.4 cm; Wt 100.6 kg
[~2020-02-12 16:09] MED LIST changes: +PREDNISONE20 MG PO
[2020-02-12 17:23] LABS: BASO # 0.1 (0.0-0.2); BASO % 1.4 % (0.0-2.0); EOS # 0.3 (0.0-0.7); EOS % 9.6 % (0-4.0); GRAN # 1.9 (1.4-6.5); GRAN % 53.6 % (42.2-75.2); LYMPH # 0.7 (1.2-3.4); LYMPH % 19.1 % (20.0-51.0); MEAN CELL VOLUME 98 fl (80.0-100.0); MEAN CORPUSCULAR HGB CONC 33 g/dl (33.0-37.0); MEAN PLATELET VOLUME 9.2 fl (7.4-10.4); MONO # 0.6 (0.1-0.6); PLATELET COUNT 146 K/mm3 (130-400); RED BLOOD COUNT 2.89 M/mm3 (4.20-5.60); REDCELL DISTRIBUTION WIDTH-CV 15.9 % (11.5-14.5)
[2020-02-12 17:34] LABS: ALANINE AMINOTRANSFERASE 15 U/L (4-49); ALBUMIN 2.7 gm/dL (3.5-5.0); ALKALINE PHOSPHATASE 114 U/L (50-136); ANION GAP 2 mmol/L (7-16); AST,SGOT 41 U/L (15-37); BILIRUBIN,TOTAL 1.5 mg/dL (0.0-1.0); BLOOD UREA NITROGEN 38 mg/dL (9-20); CALCIUM 8.5 mg/dL (8.4-10.2); CARBON DIOXIDE 29 mmol/L (22-30); CHLORIDE 105 mmol/L (98-107); CREATININE, serum 1.06 (0.66-1.25); GLUCOSE 85 mg/dL (74-106); POTASSIUM 4.4 mmol/L (3.4-5.0); SODIUM 136 mmol/L (137-145); TOTAL PROTEIN 6.8 gm/dL (6.4-8.2)
[2020-02-12 17:37] LABS: PARTIAL THROMBOPLASTIN TIME 50.7 SECONDS (26.0-37.0)
[2020-02-12 17:38] LABS: HEMATOCRIT 28.3 % (42.0-52.0); HEMOGLOBIN 9.3 g/dl (13.5-18.0); MEAN CORPUSCULAR HEMOGLOBIN 32 pg (27.0-31.0)
[2020-02-12 17:41] LABS: PROTHROMBIN TIME 45.4 SECONDS (9.7-12.8)
[2020-02-12 17:46] LABS: TROPONIN-I < 0.012 ng/mL (0.000-0.035)
--- NOTE | 2020-02-12 21:15 | NUR ---
Received patient from ER via wheelchair. Patient is alert and oriented. On room air. Currently not complaining of shortess of breath. He complains of left shoulder pain and request for ice pack. He wants to stay and sleep in the recliner as he said his shortness of breath worsens if he's laying flat. This nurse called patient's to verify the medicines he take as the patient cannot remember them.
[2020-02-12 21:22] VITALS: BP 150/74; PULSE 101; TEMP 97.7
--- NOTE | 2020-02-12 23:00 | NUR ---
This nurse called Dr. Nolan to ask if patient can take his own medicines for tonight only since he said that he's here for observation only. Dr. Nolan said to let him take his usual medicines for tonight except for Lasix and Coumadin but withold it in the morning so pharmacy can verify it. Informed patient about Dr. Nolan's order.
[2020-02-12 23:45] VITALS: BP 124/60; PULSE 89; TEMP 97.9
[2020-02-13 04:44] VITALS: BP 120/52; PULSE 93; TEMP 97.9
--- NOTE | 2020-02-13 06:30 | NUR ---
Patient had an uneventful night. Still with shortness of breath. Maintained on NPO. Will endorse to day shift nurse.
[2020-02-13 06:57] LABS: BASO % 0.9 % (0.0-2.0); EOS # 0.3 (0.0-0.7); EOS % 7.9 % (0-4.0); GRAN # 1.8 (1.4-6.5); GRAN % 53.2 % (42.2-75.2); LYMPH # 0.7 (1.2-3.4); MEAN CELL VOLUME 98 fl (80.0-100.0); MEAN CORPUSCULAR HGB CONC 33 g/dl (33.0-37.0); MEAN PLATELET VOLUME 8.8 fl (7.4-10.4); MONO # 0.6 (0.1-0.6); MONO % 16.7 % (1.7-9.3); PLATELET COUNT 116 K/mm3 (130-400); RED BLOOD COUNT 2.75 M/mm3 (4.20-5.60); REDCELL DISTRIBUTION WIDTH-CV 15.9 % (11.5-14.5)
--- NOTE | 2020-02-13 06:59 | NUR ---
PT IS IN RECLINER AT THIS TIME. PT STATES HE WOULD LIKE TO GET CLEANED UP BEFORE THE DOCTOR ROUNDS. PT WILL GET A SHOWER AT THIS TIME. NO FURTHER CONCERNS.
[2020-02-13 07:06] LABS: HEMATOCRIT 26.8 % (42.0-52.0); HEMOGLOBIN 8.7 g/dl (13.5-18.0); MEAN CORPUSCULAR HEMOGLOBIN 32 pg (27.0-31.0)
[2020-02-13 07:12] LABS: CALCIUM 8.5 mg/dL (8.4-10.2); CREATININE, serum 1.04 (0.66-1.25)
[2020-02-13 07:14] LABS: INR 3.6 (0.8-3.0); PROTHROMBIN TIME 40.7 SECONDS (9.7-12.8)
[2020-02-13 08:02] VITALS: BP 106/55; PULSE 109; TEMP 98.2
--- NOTE | 2020-02-13 10:02 | NUR ---
Pt INR today is 3.6. Pt is going to discharge home and have Paracentesis and Thoracentesis outpatient on Sunday or Sunday. Pt is ready to go home. Will continue to monitor.
== END 2020-02-13 11:19 | disposition home or self-care (01) ==
LOC: COL.ER 16:09 → MEDICAL 20:38
PROVIDERS: Emergency Medicine; ADMIT Student in an Organized Health Care Education/Training Program
DX: R06.02 Shortness of breath (principal); I25.10 Atherosclerotic heart disease of native coronary artery without angina pectoris; I48.91 Unspecified atrial fibrillation; E78.5 Hyperlipidemia, unspecified; N40.0 Benign prostatic hyperplasia without lower urinary tract symptoms; E03.9 Hypothyroidism, unspecified; K21.9 Gastro-esophageal reflux disease without esophagitis; G47.33 Obstructive sleep apnea (adult) (pediatric); J44.9 Chronic obstructive pulmonary disease, unspecified; I12.9 Hypertensive chronic kidney disease with stage 1 through stage 4 chronic kidney disease, or unspecified chronic kidney disease; N18.9 Chronic kidney disease, unspecified; K70.31 Alcoholic cirrhosis of liver with ascites; D64.9 Anemia, unspecified; I27.20 Pulmonary hypertension, unspecified; Z95.5 Presence of coronary angioplasty implant and graft; Z88.8 Allergy status to other drugs, medicaments and biological substances; Z79.01 Long term (current) use of anticoagulants; Z96.653 Presence of artificial knee joint, bilateral; Z87.891 Personal history of nicotine dependence
CPT/HCPCS: G0378; J1940

== ENCOUNTER 2020-02-16 07:38 | Outpatient (CLI) | payer MEDICARE, BC ==
[~2020-02-16] VITALS: Ht 185.4 cm; Wt 100.9 kg
[2020-02-16] MEDS ORDERED: COUMADIN 3MG3 MG/TAB PO (08:36)
[2020-02-16 08:38] LABS: PROTHROMBIN TIME 22.3 SECONDS (9.7-12.8)
[2020-02-16] MEDS ORDERED: JANTOVEN2 MG PO (08:38)
[2020-02-16 08:46] VITALS: BP 145/75; PULSE 89
[2020-02-16 10:35] VITALS: BP 106/66; PULSE 86; TEMP 98
[2020-02-16 11:11] LABS: PERITONEAL FLUID RBC 13000 /mm3 (0-0)
[2020-02-16 12:16] VITALS: BP 101/64; PULSE 89
== END 2020-02-16 14:40 | disposition home or self-care (01) ==
LOC: COL.RAD 07:38
PROVIDERS: Internal Medicine Gastroenterology
DX: K70.30 Alcoholic cirrhosis of liver without ascites (principal); J90 Pleural effusion, not elsewhere classified
CPT/HCPCS: P9047

== ENCOUNTER 2020-03-01 07:37 | Outpatient (CLI) | payer MEDICARE, BC ==
[~2020-03-01] VITALS: Ht 182.9 cm; Wt 103.2 kg
[~2020-03-01 07:37] MED LIST changes: +JANTOVEN2 MG PO; +LASIX 80MG TABL80 MG PO; -MULTIPLE VITAMI1 CAP PO; +ONE-A-DAY ESSE1 EACH PO; -SYNTHROID0.1 MG/TAB PO; +SYNTHROID0.2 MG/TAB PO; -XALATAN EYE DROPS OD; +XALATAN EYE DROPS OU
[2020-03-01] MEDS ORDERED: LASIX 80MG TABL80 MG PO (08:03)
[2020-03-01] MEDS ORDERED: RT ADVAIR 228 DISKUS IH (08:10)
[2020-03-01 08:17] VITALS: BP 110/56; PULSE 95; TEMP 97.3
[2020-03-01 09:38] LABS: INR 1.5 (0.8-3.0); PROTHROMBIN TIME 17.3 SECONDS (9.7-12.8)
[2020-03-01 10:05] VITALS: BP 115/64; PULSE 90; TEMP 97.7
--- NOTE | 2020-03-01 10:05 | NUR ---
Patient arrives back to SDC alert, denies pain or nausea. Patient monitor applied, vitals stable. Patient given water and resting comfortably on bed.
[2020-03-01 10:20] VITALS: BP 126/63; PULSE 90
--- NOTE | 2020-03-01 10:30 | NUR ---
Radiology into see patient at this time.
[2020-03-01 10:35] VITALS: BP 125/72; PULSE 84
[2020-03-01 10:50] VITALS: BP 128/65; PULSE 82
--- NOTE | 2020-03-01 10:50 | NUR ---
Radiologist contacted at this time, and reports that patient does not have a pnemothorax.
--- NOTE | 2020-03-01 10:55 | NUR ---
Dismissal instructions gone over with patient. Patient voices understanding and all questions answered.
--- NOTE | 2020-03-01 11:00 | NUR ---
Patient discharged to private vehicle at patient enterance via wheelchair without any complications. Patient leaves thanking staff for services.
== END 2020-03-01 11:00 | disposition home or self-care (01) ==
LOC: SDCO 07:37
PROVIDERS: Internal Medicine Pulmonary Disease
DX: J90 Pleural effusion, not elsewhere classified (principal); K74.60 Unspecified cirrhosis of liver; I25.10 Atherosclerotic heart disease of native coronary artery without angina pectoris; I48.91 Unspecified atrial fibrillation; E78.5 Hyperlipidemia, unspecified; N40.0 Benign prostatic hyperplasia without lower urinary tract symptoms; E03.9 Hypothyroidism, unspecified; K21.9 Gastro-esophageal reflux disease without esophagitis; E11.22 Type 2 diabetes mellitus with diabetic chronic kidney disease; N18.9 Chronic kidney disease, unspecified; G47.33 Obstructive sleep apnea (adult) (pediatric); J44.9 Chronic obstructive pulmonary disease, unspecified; D69.6 Thrombocytopenia, unspecified; Z96.653 Presence of artificial knee joint, bilateral; Z79.899 Other long term (current) drug therapy; Z79.01 Long term (current) use of anticoagulants; Z88.8 Allergy status to other drugs, medicaments and biological substances; Z87.891 Personal history of nicotine dependence; Z95.5 Presence of coronary angioplasty implant and graft; I27.20 Pulmonary hypertension, unspecified
CPT/HCPCS: 19804

== ENCOUNTER 2020-03-02 06:28 | Outpatient (CLI) | payer MEDICARE, BC ==
[~2020-03-02] VITALS: Ht 182.9 cm; Wt 103.0 kg
[2020-03-02] VITALS (7 sets, daily range): BP systolic 107–134; BP diastolic 59–82; PULSE 86–93; TEMP 98–98.6
[~2020-03-02 06:28] MED LIST changes: +RT ADVAIR 228 DISKUS IH
[2020-03-02 07:45] LABS: INR 1.6 (0.8-3.0); PROTHROMBIN TIME 18.2 SECONDS (9.7-12.8)
[2020-03-02 07:50] LABS: ALBUMIN 2.5 gm/dL (3.5-5.0); TOTAL PROTEIN 6.3 gm/dL (6.4-8.2)
[2020-03-02 08:08] LABS: BILIRUBIN UNCONJUGATED 1.5 mg/dL (0.0-1.1); BILIRUBIN,DIRECT 0.1 mg/dL (0.0-0.4)
[2020-03-02 08:14] LABS: BILIRUBIN,TOTAL 1.6 mg/dL (0.0-1.0)
--- NOTE | 2020-03-02 08:55 | NUR ---
Patient arrives to [facility] via cart, accompanied by Endo RN Andria Edgar. He is alert and oriented. He complains of pain post-procedure. He was offered Morphine by Dr. De La Cruz and declines intervention at this time. Monitoring is applied - VSS on room air. Radiology is called to obtain a post-procedure chest x-ray. Call light in reach.
--- NOTE | 2020-03-02 09:19 | NUR ---
Patient complains of some pain post-procedure. Dr. De La Cruz is called at this time regarding pain medication. Dr. De La Cruz will enter in pain medication orders.
--- NOTE | 2020-03-02 09:30 | NUR ---
VSS and WNL on room air. Patient is resting comfortably. He is sipping water.
--- NOTE | 2020-03-02 10:30 | NUR ---
Patient given IV Morphine per order for pain at procedure site. He states that pain has improved.
--- NOTE | 2020-03-02 11:15 | NUR ---
Patient has met discharge criteria. PIV is removed with catheter intact and hemostasis achieved. Discharge instructions discussed. He denies questions and verbalizes understanding. He changes to his clothing independently. He is escorted to the exit via wheelchair. He is discharged to home with ride in private vehicle at 1115.
== END 2020-03-02 11:15 | disposition home or self-care (01) ==
LOC: SDCO 06:28
PROVIDERS: Internal Medicine Pulmonary Disease
DX: J90 Pleural effusion, not elsewhere classified (principal); I25.10 Atherosclerotic heart disease of native coronary artery without angina pectoris; Z95.5 Presence of coronary angioplasty implant and graft; I48.91 Unspecified atrial fibrillation; E78.5 Hyperlipidemia, unspecified; N40.0 Benign prostatic hyperplasia without lower urinary tract symptoms; E03.9 Hypothyroidism, unspecified; K21.9 Gastro-esophageal reflux disease without esophagitis; I12.9 Hypertensive chronic kidney disease with stage 1 through stage 4 chronic kidney disease, or unspecified chronic kidney disease; N18.9 Chronic kidney disease, unspecified; G47.33 Obstructive sleep apnea (adult) (pediatric); J44.9 Chronic obstructive pulmonary disease, unspecified; D69.6 Thrombocytopenia, unspecified; Z96.653 Presence of artificial knee joint, bilateral; Z79.01 Long term (current) use of anticoagulants; Z87.891 Personal history of nicotine dependence; Z88.8 Allergy status to other drugs, medicaments and biological substances
CPT/HCPCS: J2270; P9047

== ENCOUNTER → 2020-03-04 | Outpatient (CLI) | payer MEDICARE, BC | LOC: COL.RAD 14:58 | DX: R13.12 Dysphagia, oropharyngeal phase (principal) ==

== ENCOUNTER 2020-03-05 06:38 | Outpatient (CLI) | payer MEDICARE, BC ==
[~2020-03-05] VITALS: Ht 182.9 cm; Wt 103.0 kg
[2020-03-05 07:03] VITALS: BP 120/73; PULSE 101
[2020-03-05 08:40] VITALS: BP 121/62; PULSE 94; TEMP 97.7
[2020-03-05 09:27] LABS: PERITONEAL -POLYMORPHONUCLEAR 10.2 % (0-25); PERITONEAL FLUID RBC 4000 /mm3 (0-0)
--- NOTE | 2020-03-05 10:00 | NUR ---
albumin infused, no c/o, int d'cd intact by Susan ROSSI. pt was discharged via w/c to car with
== END 2020-03-05 16:21 | disposition home or self-care (01) ==
LOC: COL.RAD 06:38
PROVIDERS: Internal Medicine Pulmonary Disease
DX: K70.31 Alcoholic cirrhosis of liver with ascites (principal)
CPT/HCPCS: P9047

== ENCOUNTER 2020-03-23 10:08 | Outpatient (CLI) | payer MEDICARE, BC ==
[~2020-03-23] VITALS: Ht 182.9 cm; Wt 100.8 kg
[2020-03-23 10:31] VITALS: BP 128/69; PULSE 89
[2020-03-23 13:15] LABS: PERITONEAL -POLYMORPHONUCLEAR 12.2 % (0-25); PERITONEAL FLUID RBC 2000 /mm3 (0-0)
[2020-03-23 13:54] VITALS: BP 109/64; PULSE 91; TEMP 97.5
== END 2020-03-23 16:55 | disposition home or self-care (01) ==
LOC: COL.RAD 10:08
PROVIDERS: Internal Medicine Gastroenterology
DX: K74.60 Unspecified cirrhosis of liver (principal)
CPT/HCPCS: P9047

== ENCOUNTER 2020-03-24 09:00 | Outpatient (RCR) | payer MEDICARE, BC ==
[2020-03-31] MEDS ORDERED: LASIX 40MG TABL40 MG PO ×2 (12:34→12:35)
[2020-03-31] MEDS ORDERED: ZAROXOLYN 2.52.5 MG (12:37)
[2020-04-08] MEDS ORDERED: LANOXIN 0.120.125 MG PO (07:54)
[2020-04-08] MEDS ORDERED: LOPRESSOR 225 MG/TAB PO (07:54)
[2020-04-08] MEDS ORDERED: LASIX 20MG TABL20 MG PO ×2 (09:12→14:24)
[2020-04-16] MEDS ORDERED: BETAPACE 80MG80 MG PO (17:46)
[2020-04-16] MEDS ORDERED: LASIX 20MG TABL20 MG PO (17:48)
[2020-04-16] MEDS ORDERED: LASIX 40MG TABL40 MG PO (17:48)
[2020-04-16] MEDS ORDERED: ZAROXOLYN 2.52.5 MG PO (17:51)
[2020-04-16] MEDS ORDERED: COUMADIN 1MG1 MG/TAB PO (17:52)
[2020-04-16] MEDS ORDERED: COUMADIN 3MG3 MG/TAB PO ×2 (17:53→17:54)
[2020-04-16] MEDS ORDERED: COUMADIN 2MG2 MG/TAB PO (17:55)
[2020-04-16] MEDS ORDERED: LANOXIN 0.120.125 MG PO (20:22)
[2020-04-16] MEDS ORDERED: LOPRESSOR 225 MG/TAB PO (20:23)
[2020-04-28] MEDS ORDERED: DIGITEK0.125 MG PO (11:28)
[2020-04-28] MEDS ORDERED: LOPRESSOR 225 MG/TAB PO (11:29)
[2020-04-28] MEDS ORDERED: TYLENOL 500MG500 MG PO (11:29)
[2020-04-28] MEDS ORDERED: LASIX 40MG TABL40 MG PO (11:30)
== END 2020-05-23 | disposition home or self-care (01) ==
LOC: WSST
DX: R13.12 Dysphagia, oropharyngeal phase (principal)

== ENCOUNTER 2020-03-31 11:04 | Inpatient (IN) | payer MEDICARE, BC ==
--- NOTE | 2020-03-30 22:50 | NUR ---
Contacted Dr. Lowry at this time to give him an update on the pts status. He informed me that he was following the pts status. Vitals were all within normal limits. Pt stated that his pain had came down to a 4. Pt is currently resting in bed and has his call light within reach. Pt chest tube is currently in place and dressing was reinforced at this time due to tape coming off. Pt tolerated this well. Pt was able to finish his two doses of potassium. Pt stated that he feels better. I went down because pt brought his CPap and his other belongings. Pt stated that he did not want to put on his night clothes his brought him he want to wait until the am. Could not find pt [facility]
[2020-03-31] VITALS (9 sets, daily range): BP systolic 94–106; BP diastolic 46–62; PULSE 84–90; TEMP 98
[2020-03-31 11:58] LABS: INR 1.5 (0.8-3.0)
[2020-03-31] MEDS ORDERED: LASIX 40MG TABL40 MG PO ×2 (12:34→12:35)
[2020-03-31] MEDS ORDERED: ZAROXOLYN 2.52.5 MG (12:37)
[2020-03-31 13:50] LABS: PLEURAL FLUID RBC 428000 /mm3 (0-0); PLEURAL FLUID WBC 1109 /mm3
[2020-03-31 13:54] LABS: PLEURAL FLUID APPEARANCE BLOODY; PLEURAL FLUID COLOR RED
[2020-03-31 14:06] LABS: TOTAL PROTEIN,PLEURAL FLUID 3.7 gm/dL
[2020-03-31 14:10] LABS: BASO # 0.1 (0.0-0.2); BASO % 1.2 % (0.0-2.0); EOS # 0.2 (0.0-0.7); EOS % 4.2 % (0-4.0); GRAN # 2.5 (1.4-6.5); GRAN % 56.7 % (42.2-75.2); LYMPH # 0.8 (1.2-3.4); LYMPH % 18.5 % (20.0-51.0); MEAN CELL VOLUME 99 fl (80.0-100.0); MEAN CORPUSCULAR HGB CONC 33 g/dl (33.0-37.0); MEAN PLATELET VOLUME 8.7 fl (7.4-10.4); MONO # 0.8 (0.1-0.6); MONO % 19.2 % (1.7-9.3); PLATELET COUNT 168 K/mm3 (130-400); RED BLOOD COUNT 2.93 M/mm3 (4.20-5.60)
[2020-03-31 14:11] LABS: HEMOGLOBIN 9.5 g/dl (13.5-18.0); MEAN CORPUSCULAR HEMOGLOBIN 32 pg (27.0-31.0)
[2020-03-31 14:23] LABS: ALBUMIN 2.7 gm/dL (3.5-5.0); CALCIUM 8.5 mg/dL (8.4-10.2); CREATININE, serum 1.13 (0.66-1.25); TOTAL PROTEIN 6.4 gm/dL (6.4-8.2)
[2020-03-31 14:35] LABS: POTASSIUM 2.8 mmol/L (3.4-5.0)
--- NOTE | 2020-03-31 16:32 | NUR ---
PT TO ROOM 347 PER BED WITH REPORT FROM ROULA ROSSI AND STONEY LISA @[id number]. PT IS A/O X3, LUNGS CLEAR, CHEST TUBE INPLACE TO LEFT SIDE. CANNISTER WITH LOW BOIL. REDDISH DRAINAGE PRESENT.PO PAIN MEDS AND PO POTASSIUN PROTOCOLS STARTED. AT BEDSIDE.
--- NOTE | 2020-03-31 19:05 | NUR ---
Received report from FLO Calloway. Pt dressing around his chest tube tubing was saturated. Dressing were reinforced at this time. Pt canister was full so house rn was contacted to bring up new canister. Pt is at bedside. Pt did inform me that she would bring his CPap machine back to the hospital before bed.
--- NOTE | 2020-03-31 20:00 | NUR ---
Pt called out and stated that he was having really bad pain. Pt stated that he felt like he was going to . When asked to explain or show where the pain was, the pain was mid-sternum chest pain. Dr. Martinez was contacted at this time. I explained about what the pt was experiencing. Dr. Martinez wanted me to contact hospitalist. Dr. Lowry was contacted at this time. He wanted a chest xray, tropinin level, and EKG. This was all ordered. Pt was given Norc 5/325 and dilaudid for this pain. Pt is currently in bed and vitals are being monitored at this time. Pt was put on 2 liters of oxygen at this time. All of pt vitals are within normal limits. Pt has been tolerating fluids well. Pt output is currenty has 200 output in the chest tube, new chest tube was placed by house carpenter helper. Pt has his call light within reach and was informed about all that will be done to make sure that he is ok Pt is has left and will bring pt CPap machine back for staff to brick picker in ED.
--- NOTE | 2020-03-31 21:01 | NUR ---
Pt has ordered for Telemetry at this time. Pt also has had his chest xray done, his EKG done and his tropinin lab was drawn. Pt also had a ordered potassium that was drawn at this time Pt has 2 more doses of potassium due tonight. Pt stated that he would take the potassium with grape or apple juice. I informed him that that I wanted to make sure everything was ok with him and there would be several test that will be done. Pt did leave the pt belongings at the ED entrance and I will go down to get them as soon as I am able. Pt has his call light within reach and his bed is in lowest position.
--- NOTE | 2020-03-31 22:00 | NUR ---
Pt stated that his pain is better. It isn't completly gone, but it's better. Pt stated that he would call if he needed something. Pt chest tube is still in place and bubbling at this time.
[2020-04-01] VITALS (7 sets, daily range): BP systolic 85–104; BP diastolic 42–59; PULSE 79–89; TEMP 97.4–98.6
--- NOTE | 2020-04-01 00:03 | NUR ---
During pt hourly rounding, pt stated that his pain had increased. He asked if he could have something for pain. Pt was given pain medication at this time along with fresh water. Pt has been tolerating fluids well. Pt has his call light within reach and his bed is in lowest position.
--- NOTE | 2020-04-01 03:50 | NUR ---
Pt was sitting up on the side of the bed. Pt stated that he thinks that he had a bad dream. Pt dressing was reinforced at this time. Pt tape was coming off at this time. Pt tolerated this well. Pt stated that he was having some pain at this time and pt was given [place] at this time. Pt is back in bed and has his call light within reach.
--- NOTE | 2020-04-01 07:04 | NUR ---
Reported off to FLO Calloway. Pt resting in bed and getting ready for breakfast. Pt has call light within reach.
[2020-04-01 07:45] LABS: INR 1.5 (0.8-3.0); PROTHROMBIN TIME 16.9 SECONDS (9.7-12.8)
[2020-04-01 07:46] LABS: BASO # 0.1 (0.0-0.2); BASO % 1.1 % (0.0-2.0); EOS # 0.2 (0.0-0.7); EOS % 3.2 % (0-4.0); GRAN % 64.3 % (42.2-75.2); LYMPH # 0.7 (1.2-3.4); LYMPH % 15.4 % (20.0-51.0); MEAN CELL VOLUME 99 fl (80.0-100.0); MEAN CORPUSCULAR HEMOGLOBIN 33 pg (27.0-31.0); MEAN CORPUSCULAR HGB CONC 33 g/dl (33.0-37.0); MEAN PLATELET VOLUME 8.8 fl (7.4-10.4); MONO # 0.7 (0.1-0.6); MONO % 15.4 % (1.7-9.3); PLATELET COUNT 158 K/mm3 (130-400); RED BLOOD COUNT 3.05 M/mm3 (4.20-5.60); REDCELL DISTRIBUTION WIDTH-CV 15.7 % (11.5-14.5)
[2020-04-01 07:47] LABS: HEMATOCRIT 30.1 % (42.0-52.0)
[2020-04-01 07:54] LABS: CALCIUM 8.2 mg/dL (8.4-10.2); CREATININE, serum 1.1 (0.66-1.25); POTASSIUM 3.2 mmol/L (3.4-5.0)
--- NOTE | 2020-04-01 09:19 | NUR ---
Initial visit; Patient and his thanked Assistant Production Editor for Looking in on him and offering good humor, comfort and prayer.
--- NOTE | 2020-04-01 10:06 | NUR ---
PT RESTING IN BED. PAIN CONTROLLED WITH PO MEDS. DRAINAGE HAS SLOWED WITH 100 MLS OUT PUT THIS SHIFT. WITH TOTAL OVER 1800 SINCE CHANGING CANNISTER LAST NOC. PT ATE 30% OF BREAKFAST. AT BEDSIDE.
--- NOTE | 2020-04-01 15:00 | NUR ---
Sludge Mill Operator met with patient and patient's to discuss discharge planning. Patient lives in [place] with his , Maddi (ph#[phone]) and sees Dr. Cruz for primary care. Patient obtains medications from [facility] with no difficulties. Patient has a CPAP, cane, and walker at home but reports he normally does not need the walker or cane. Patient states his home is all one level, with wide doorways, raised toilets, and a walk in shower. Patient is normally independent with ADLS and plans to return home upon discharge. Patient states he has Advance Directives completed but copy not located in EMR. SW will continue to follow as needed.
[2020-04-01 16:36] LABS: HEMATOCRIT 30.8 % (42.0-52.0); HEMOGLOBIN 9.9 g/dl (13.5-18.0)
[2020-04-02] VITALS (7 sets, daily range): BP systolic 89–112; BP diastolic 45–66; PULSE 74–91; TEMP 97.7–98.4
--- NOTE | 2020-04-02 02:22 | NUR ---
Currently in pt room. Pt dressing was just changed. Pt dressing was changed again around 2340. Pt called both times and stated that his dressing felt like it was wet. Pt dressing was reinforced on top of the orginal dressing. I used 4x4's and a drain sponge around the tubing of the chest tube. Pt blood pressure was 90/54 earlier and we decided to try the Tylenol instead of the [place]. Pt still is rating his pain at a 6 or 7. Pt blood pressure was just taken and his blood pressure is currently 105/54. Pt is currently lying in bed and has his call light within reach. I informed the pt that since his blood pressure has increased we will try to the [place] and see if this will help with his pain. Pt stated he can't rest because the pain keeps coming back. He stated sometimes it isn't even a 3 but it keeps waking him up.
--- NOTE | 2020-04-02 05:58 | NUR ---
Pt is currently sleeping in bed. After pain medication pt has had no complaints of pain. Pt chest tube has had no drainage around the tubing since the last dressing change. Pt has his call light within reach and his bed is in lowest position.
[2020-04-02 06:36] LABS: BASO % 0.6 % (0.0-2.0); EOS # 0.3 (0.0-0.7); EOS % 4.9 % (0-4.0); GRAN # 3.5 (1.4-6.5); GRAN % 66.8 % (42.2-75.2); LYMPH # 0.8 (1.2-3.4); LYMPH % 15.2 % (20.0-51.0); MEAN CELL VOLUME 99 fl (80.0-100.0); MEAN CORPUSCULAR HGB CONC 33 g/dl (33.0-37.0); MONO # 0.6 (0.1-0.6); MONO % 12.1 % (1.7-9.3); PLATELET COUNT 178 K/mm3 (130-400); REDCELL DISTRIBUTION WIDTH-CV 15.8 % (11.5-14.5)
[2020-04-02 06:39] LABS: HEMATOCRIT 29.8 % (42.0-52.0); HEMOGLOBIN 9.8 g/dl (13.5-18.0); MEAN CORPUSCULAR HEMOGLOBIN 33 pg (27.0-31.0)
[2020-04-02 06:50] LABS: CALCIUM 8.1 mg/dL (8.4-10.2); CREATININE, serum 1.22 (0.66-1.25); POTASSIUM 3.5 mmol/L (3.4-5.0)
--- NOTE | 2020-04-02 07:00 | NUR ---
Reported off to Miriam Byrd. Pt is currently sitting up in bed and getting ready to eat breakfast. He was assisted with the set up for his oral care this morning. Pt did state that his pain is much better this morning. He did also state that his CPap was taken off for during his labs this morning and he lost a piece to it. Pt did let myself and MIRIAM Byrd know about this. Pt has his call light within reach and his bed is in lowest position.
--- NOTE | 2020-04-02 08:00 | NUR ---
Patient in bed resting. Alert and oriented x 3. Assessment complete. States mild pain to chest tube site. Chest tube to left chest with gauze dressing, serous drainage present. Dressing changed to ABD and gauze. Chest tube draining light pink fluid, patient states it looks better than yesterday when it was bloody. Denies further needs at this time. Will continue to monitor.
--- NOTE | 2020-04-02 08:45 | NUR ---
Patient called out to nurses station, states pain 5/10 requests pain meds at this time. Medications given per orders.
--- NOTE | 2020-04-02 10:20 | NUR ---
Patient states pain continues to be 5/10 after working with therapy this morning, refuses pain meds at this time.
--- NOTE | 2020-04-02 14:07 | NUR ---
Cylinder Inspector met with patient to discuss discharge planning. Hospitalist discussed possible transfer to [facility]. SW will continue to follow.
--- NOTE | 2020-04-02 19:28 | NUR ---
Patient has done well today. Has been up to restroom with stand by assist througout the day. Requested pain medications for pain to chest tube site, medications given per orders. Dressing to chest tube site changed x 2 today, dressing with drain sponges and x2 abd pads, saturated with serous fluid. Chest tube canister replaced this afternoon; continues draining serous fluid. . Spouse at bedside throughout the day. Dr. Blakely notified of low BP this afternoon, no new orders. Dr. Blakely also notified of familys concern for patient needing albumin replace d/t output from chest tube. Patient denies further needs at this time. Will report off to night baker.
--- NOTE | 2020-04-02 21:50 | NUR ---
Pt in bed, has left chest tube with bulky dressing D/I at this time. Has mild amount of crepitus around chest tube site. Chest tube to LCS at 20cm sx. Drainage is serous in color. Has right hand SL, flushes well. Takes Lutsen for pain as well as other HS meds. Uses urinal at bedside.
[2020-04-03] VITALS (7 sets, daily range): BP systolic 94–114; BP diastolic 52–63; PULSE 81–92; TEMP 97.7–98.9
--- NOTE | 2020-04-03 03:04 | NUR ---
Medicated with Seymour 1 tab for pain to left chest tube site at this time.
--- NOTE | 2020-04-03 06:50 | NUR ---
DRSG CHANGED TO LEFT CHEST TUBE, HAS SEROUS FLUID LEAKING AROUND SITE. HAD 490CC OF OUTPUT FROM CHEST TUBE THIS SHIFT.
[2020-04-03 07:30] LABS: BASO # 0.1 (0.0-0.2); BASO % 1.1 % (0.0-2.0); EOS # 0.3 (0.0-0.7); EOS % 4.9 % (0-4.0); GRAN # 3.3 (1.4-6.5); GRAN % 63.4 % (42.2-75.2); HEMOGLOBIN 10.1 g/dl (13.5-18.0); LYMPH # 0.8 (1.2-3.4); MEAN CELL VOLUME 100 fl (80.0-100.0); MEAN CORPUSCULAR HEMOGLOBIN 33 pg (27.0-31.0); MEAN CORPUSCULAR HGB CONC 33 g/dl (33.0-37.0); MEAN PLATELET VOLUME 9.1 fl (7.4-10.4); MONO # 0.8 (0.1-0.6); MONO % 15.2 % (1.7-9.3); PLATELET COUNT 190 K/mm3 (130-400); RED BLOOD COUNT 3.08 M/mm3 (4.20-5.60)
[2020-04-03 07:38] LABS: HEMATOCRIT 30.7 % (42.0-52.0)
[2020-04-03 07:51] LABS: ALBUMIN 2.4 gm/dL (3.5-5.0); BILIRUBIN,TOTAL 1.3 mg/dL (0.0-1.0); CALCIUM 8.1 mg/dL (8.4-10.2); CREATININE, serum 1.41 (0.66-1.25); POTASSIUM 3.8 mmol/L (3.4-5.0); TOTAL PROTEIN 5.8 gm/dL (6.4-8.2)
--- NOTE | 2020-04-03 08:30 | NUR ---
CHANGED CHEST TUBE TO WATER SEAL.
--- NOTE | 2020-04-03 22:57 | NUR ---
PT IN BED, HAS CPAP ON. REPORTS PAIN TO LEFT CHEST TUBE SITE, 6/10. MEDICATED WITH NORCO 1 TAB PO AT THIS TIME. DRSG TO LEFT CHEST TUBE SITE INTACT, NO LEAKING THROUGH, CT TO WATERSEAL, FLUID IS SEROUS.
--- NOTE | 2020-04-04 04:25 | NUR ---
FOUND PT SITTING AT EDGE OF BED, TAKING CLOTHES OFF AND STATING "I'M GETTING UP". PT WAS AWARE HE WAS IN THE HOSPITAL, UNSURE OF DAY AND TIME. PT RESTLESS AND MOVING EXTREMITIES EXCESSIVELY. VS STABLE WHEN CHECKED. DENIES PAIN, BUT GRIMACES WHEN STANDING UP AND CHEST TUBE IS PULLED. ASSISTED BACK TO BED AND LIGHT LEFT ON FOR ORIENTATION.
[2020-04-04 04:36] VITALS: BP 119/54; PULSE 107; TEMP 99.1
--- NOTE | 2020-04-04 05:18 | NUR ---
MEDICATED WITH AM MED INCLUDING NORCO FOR PAIN. PT LESS RESTLESS AT THIS TIME. IS ORIENTED TO TIME OF DAY AND WHERE HE IS. BED ALARM SET FOR SAFETY. CHEST TUBE INTACT, DRAINS 300CC OF SEROUS FLUID THIS SHIFT.
[2020-04-04 08:13] LABS: BASO # 0.1 (0.0-0.2); BASO % 0.5 % (0.0-2.0); EOS # 0.2 (0.0-0.7); EOS % 1.7 % (0-4.0); GRAN # 7.5 (1.4-6.5); GRAN % 76.2 % (42.2-75.2); LYMPH # 0.6 (1.2-3.4); LYMPH % 6.5 % (20.0-51.0); MEAN CELL VOLUME 99 fl (80.0-100.0); MEAN CORPUSCULAR HEMOGLOBIN 32 pg (27.0-31.0); MEAN CORPUSCULAR HGB CONC 33 g/dl (33.0-37.0); MONO # 1.4 (0.1-0.6); MONO % 14.5 % (1.7-9.3); PLATELET COUNT 208 K/mm3 (130-400); RED BLOOD COUNT 3.09 M/mm3 (4.20-5.60); REDCELL DISTRIBUTION WIDTH-CV 15.9 % (11.5-14.5)
[2020-04-04 08:19] LABS: CALCIUM 7.9 mg/dL (8.4-10.2); CREATININE, serum 1.41 (0.66-1.25); POTASSIUM 3.9 mmol/L (3.4-5.0)
[2020-04-04 08:30] LABS: HEMATOCRIT 30.6 % (42.0-52.0)
[2020-04-04 08:50] VITALS: BP 90/50; PULSE 111; TEMP 97.8
--- NOTE | 2020-04-04 08:55 | NUR ---
Patient sitting up at edge of bed. His at bedside. Niki assisting with cares, she provided hygiene & fresh linens. Patient chest tube to water seal, rounded this am. Dressing intact. patient was up to the bathroom & had BM. He has been using Urinal to void. Int. Betapace held due to low BP. Tele on, history of afib. Will monitor
[2020-04-04 12:00] VITALS: BP 99/51; PULSE 93; TEMP 98.3
--- NOTE | 2020-04-04 15:25 | NUR ---
Patient resting in bed. His spouse at bedside. Phyllsi for an afternoon snack. no other needs at this time
[2020-04-04 16:00] VITALS: BP 119/54; PULSE 106; TEMP 98
--- NOTE | 2020-04-04 18:06 | NUR ---
Patient stand by assist to the bathroom, he voided. Sat up at sit of bed. encouraged coughing & deep breathing. He is going to work on dinner.
--- NOTE | 2020-04-04 19:21 | NUR ---
Drainage noted to chest tube site. New dressing applied-prior dressing saturated with serous output. chest tube sutures intact. some reddness noted at insertion site. vasaline gauze, drain sponge,abd pad & tape used. Skin is starting to have irritation from tape, used less tape to try to prevent further skin irritation. Patient reports some neck discomfort-his is hoping less narcotics can be used she is concerned is is causing him some confusion. Bedside report to Digna RN
[2020-04-04 19:58] VITALS: BP 109/47; PULSE 100; TEMP 98.3
--- NOTE | 2020-04-04 20:10 | NUR ---
MEDICATED WITH TYLENOL 650MG PO AND ONE DOSE OF POTASSIUM EFFERV 20MEQ IN ORANGE JUICE FOR K+3.8. PT STATES "IS THIS THE END OF ME?" REASSURED PT AT THIS TIME.
[2020-04-04 20:43] LABS: ARTERIAL BLD GAS TCO2 CT 32.1; ARTERIAL BLOOD GAS PO2 63.2 mmHg (80-100); ARTERIAL BLOOD GAS pH 7.54 (7.35-7.45)
--- NOTE | 2020-04-04 21:42 | NUR ---
PT IN BED, SLIGHTLY SHORT OF BREATH. HAD LABS, ABG, CXR AND EKG DONE. IS ALERT, ORIENTED X3. NEW IV SITE PLACED TO RIGHT FOREARM, RIGHT HAND IV SITE DC'D DUE TO LEAKING. HS MED GIVEN WELL DOSE OF DILAUDID FOR LEFT CHEST WALL PAIN AND ANXIETY. HAS CPAP ON AT THIS TIME AND BED ALARM IS ON. CHEST TUBE TO LEFT TO WATERSEAL, SEROUS FLUID DRAINING, DRSG INTACT AND WAS CHANGED AT SHIFT CHANGE BY KAYLI ROSSI. VOIDING PER URINAL. SCDS ON.
[2020-04-05] VITALS (7 sets, daily range): BP systolic 95–120; BP diastolic 44–67; PULSE 68–113; TEMP 97.6–99.7
--- NOTE | 2020-04-05 06:00 | NUR ---
Pt had more restful night this shift than previous night. Had only 10cc of drainage from chest tube. Voiding per urinal.
[2020-04-05 08:15] LABS: CREATININE, serum 1.63 (0.66-1.25); POTASSIUM 3.9 mmol/L (3.4-5.0)
--- NOTE | 2020-04-05 09:09 | NUR ---
PATIENT MORNING SHIFT ASSESSMENT COMPLETE AT THIS TIME. PATIENT LEFT CHEST TUBE OCCLUSIVE DRESSING IS CD&I. CHEST TUBE TO DEPENDENT DRAINAGE TO WATERSEAL WITH SEROUS DRAINAGE PRESENT IN WATERSEAL CANISTER. PATIENT OFFERED AND REFUSED PAIN MEDICATION. BED ALARM ON. CALL LIGHT WITHIN REACH. PATIENT DENIES ANY NEEDS AT THIS TIME.
--- NOTE | 2020-04-05 11:43 | NUR ---
ANA met with the patient and his , Maddi, to review d/c plan. Maddi reports that the plan is for the patient to return home when ready. She states that the patient is to tentatively transfer to [facility]. SW to continue to follow as needed.
--- NOTE | 2020-04-05 14:43 | NUR ---
CALLED AND NOTIFIED OF CARDIOLOGY CONSULT TO MANAGE THE PATIENTS ATRIAL FIBRILLATION. NO ORDERS GIVEN AT THIS TIME.
--- NOTE | 2020-04-05 15:33 | NUR ---
ANA received a phone call from Andria, Jet Piercer Operator at [facility]. Andria requested the patient's records. ANA faxed the records to Andria (fax#[phone]).
--- NOTE | 2020-04-05 18:24 | NUR ---
PATIENT CURRENTLY RESTING IN BED WITH PRESENT AT THE BEDSIDE. PATIENTS ORAL FOOD INTAKE HAS BEEN MINIMAL THROUGH THE SHIFT. PATIENT DENIES PAIN AT THIS TIME. CHEST TUBE TO DEPENDENT DRAINAGE WATERSEAL. PATIENT VOIDED USING THE URINAL THROUGHOUT THE DAY. WILL REPORT OFF TO ONCOMING NURSE.
--- NOTE | 2020-04-05 18:36 | NUR ---
PATIENT GIVEN PRN PO NORCO AFTER GETTING UP TO USE THE RESTROOM. PATIENT HAS FACIAL GRIMACING AND SEEMS TO BE UNCOMFORTABLE. PATIENT HAS REFUSED PAIN MEDICATIONS WHEN OFFERED THROUGHOUT MY SHIFT. THE REPORTS DRAINAGE FROM THE CHEST TUBE DRESSING. NO DRAINAGE FELT ON DRESSING BY THIS NURSE. WILL REPORT TO NIGHT NURSE TO CONTINUE MONITORING FOR ANY LEAKING FROM THE CHEST TUBE DRESSING SITE.
--- NOTE | 2020-04-05 19:50 | NUR ---
Received report from FLO Epstein. Pt at bedside. Pt has no complaints at this time. Pt has his call light witin reach and his bed is in lowest position.
[2020-04-06] VITALS (7 sets, daily range): BP systolic 94–121; BP diastolic 38–77; PULSE 78–100; TEMP 97.7–98.9
[2020-04-06 04:02] LABS: CREATININE, serum 1.73 (0.66-1.25)
[2020-04-06 04:03] LABS: SODIUM 136 mmol/L (137-145)
--- NOTE | 2020-04-06 06:35 | NUR ---
Pt has slept well during the night. Pt 24 hour urine was actually began at around 0238. Pt tried several times during the night. Pt was able to go then. The urine sameple was taken down to lab. Pt voided this morning at around 0615. I did notice that pt did have some incontinence this morning. Pt underwear was changed and he was given a clean brief at this time. Pt is currently in bed and drinking orange juice this morning. Pt only had about 10cc of output on his chest tube this morning. Dressing was changed once during the night by FLO Dorsey. Pt did have sometimes where he was confused during the night. Pt has his call light within reach and his bed is in lowest position.
--- NOTE | 2020-04-06 07:42 | NUR ---
Lying in bed with eyes open. Patient is alert and oriented at this time x3. Patient says that he has a little bit of a sore throat this morning, denies any other pain. Chest tube to water seal, minimal yellow output through the night. Patient declines breakfast tray this morning. Denies any additional needs at this time.
[2020-04-06 08:26] LABS: ALBUMIN 2.5 gm/dL (3.5-5.0); BILIRUBIN,TOTAL 3.2 mg/dL (0.0-1.0); CALCIUM 7.9 mg/dL (8.4-10.2); CREATININE, serum 1.67 (0.66-1.25); POTASSIUM 3.6 mmol/L (3.4-5.0)
--- NOTE | 2020-04-06 13:05 | NUR ---
Lying in bed in supine position. No appetite and does not want to eat his lunch. Having some pain but wants to wait until after he sees Dr. Martinez before getting pain medication. in room at bedside. Denies any additional needs at this time.
--- NOTE | 2020-04-06 14:41 | NUR ---
Lying in bed with eyes open. Dr. Martinez in room and removes chest tube. Vaseline gauze pressure dressing applied to chest tube site. Patient says that it feels better with the tube being out. Remains lying in bed in supine position. at bedside. Denies additional needs at this time.
--- NOTE | 2020-04-06 20:30 | NUR ---
PT IN BED, IS ALERT AND ORIENTED X2. BED ALARM ON FOR SAFETY. HAS DRSG TO OLD LEFT CHEST TUBE SITE, D/I. DENIES PAIN. 24HR URINE COLLECTION IN PROGRESS. VOIDS PER URINAL. SL TO RIGHT FOREARM, FLUSHED WELL.
--- NOTE | 2020-04-07 02:30 | NUR ---
URINE COLLECTION COMPLETE AND SENT TO LAB. PT AWAKE AT THIS TIME, DENIES NEEDS.
[2020-04-07 02:57] LABS: URINE TOTAL VOLUME 550 mL
[2020-04-07 02:58] LABS: CREATININE, serum 1.67 (0.66-1.25)
[2020-04-07 03:50] LABS: URINE CREATININE CLEARANCE 27.3 mL/min (97-137)
[2020-04-07 04:00] VITALS: BP 113/42; PULSE 85; TEMP 97.6
--- NOTE | 2020-04-07 05:58 | NUR ---
PT MORE ALERT THIS AM. ASKS FOR POLIDENT AND RAZOR. HAS NOT BEEN IMPULSIVE AND IS USING THE CALL LIGHT FOR NEEDS.
[2020-04-07 07:59] VITALS: BP 113/44; PULSE 82; TEMP 98
--- NOTE | 2020-04-07 09:00 | NUR ---
PAATIENT ON RA, 96%. LUNGS CLEAR BILAT.
--- NOTE | 2020-04-07 09:45 | NUR ---
Patient alert and oriented, answers questions appropriately. See assessment. Previous chest tube site with dressing CDI. Lungs coarse in lower lobes, clear in upper lobes. Activity encouraged. No c/o at this time.
--- NOTE | 2020-04-07 09:56 | NUR ---
Dr Martinez here to see patient.
--- NOTE | 2020-04-07 11:27 | NUR ---
Mel Dubon notified of Palliative care consult.
[2020-04-07 11:42] VITALS: BP 96/50; PULSE 50; TEMP 98.9
--- NOTE | 2020-04-07 12:42 | NUR ---
I met with pt and his at bedside. told me almost immediately that they are hoping for IPR for strengthening and then going home. Want to be together as much as they can be--no prison! Not ready for hospice at this time. She reports that Sabine Holliday is a friend of the family and that she can always ask her what to do also. At this point they are hoping for medical management of issues and to avoid invasive procedures ifii possible. Not sure about cardiac lt atrial appendage exclusion device, not sure about dialysis, has heard of pleurx drain but not sure wants one of those either.
--- NOTE | 2020-04-07 12:47 | NUR ---
provided me with copy of living will and DPOA-HC which Ii placed on the chart.
--- NOTE | 2020-04-07 15:57 | NUR ---
Patient was screened for IPR and declined. ANA followed up with patient and his , Maddi to provide update. ANA provided Medicare.gov list of Home Health agencies. Maddi states she wants to review this list with her niece before making a decision on which agency. ANA will continue to follow.
[2020-04-07 16:02] VITALS: BP 150/76; PULSE 49; TEMP 98.6
[2020-04-07 20:12] VITALS: BP 114/40; PULSE 84; TEMP 99.8
--- NOTE | 2020-04-07 21:00 | NUR ---
PT IN BED. IS ALERT AND ORIENTED X3. HAS SL TO RIGHT FOREARM, FLUSHES WELL. DRSG TO OLD LEFT CHEST TUBE INTACT. DENIES PAIN AT THIS TIME.
--- NOTE | 2020-04-07 22:30 | NUR ---
PT ON CPAP, TAKES HS MEDS WITHOUT PROBLEM.
[2020-04-08 00:22] VITALS: BP 109/54; PULSE 89; TEMP 98.2
[2020-04-08 04:19] VITALS: BP 109/47; PULSE 90; TEMP 98.9
--- NOTE | 2020-04-08 06:00 | NUR ---
Has worn CPAP all night. Takes AM Synthroid at this time.
--- NOTE | 2020-04-08 06:33 | NUR ---
Pt currently sleeping in bed. Pt has his call light within reach and his bed is in lowest position. Pt has ice to his incision. Pt download from device was done this morning and the print out is on the front of the pts chart.
[2020-04-08 07:34] LABS: CALCIUM 7.8 mg/dL (8.4-10.2); CREATININE, serum 1.66 (0.66-1.25); MAGNESIUM 2.4 mg/dL (1.6-2.3); POTASSIUM 3.5 mmol/L (3.4-5.0)
[2020-04-08] MEDS ORDERED: LOPRESSOR 225 MG/TAB PO (07:54)
[2020-04-08] MEDS ORDERED: LANOXIN 0.120.125 MG PO (07:54)
--- NOTE | 2020-04-08 08:00 | NUR ---
Patient resting in bed at this time. Patient is sleepy but rouses easily, is alert and answers orientation questions correctly. Dressing to left lateral chest appears to be clean, dry, and intact. Patient denies pain or needs at this time, call light within reach.
[2020-04-08 08:29] VITALS: BP 100/48; PULSE 87; TEMP 98.2
[2020-04-08 08:41] LABS: INR 1.5 (0.8-3.0); PROTHROMBIN TIME 16.9 SECONDS (9.7-12.8)
--- NOTE | 2020-04-08 09:05 | NUR ---
Follow-up visit; Patient and his thanked Construction Area Manager for looking in on Tito, offering comfort and encouragement. Construction Area Manager offered her time and empathy to family and God's blessings. Patient's thanked Construction Area Manager for offering further care to her and Tito.
[2020-04-08] MEDS ORDERED: LASIX 20MG TABL20 MG PO ×2 (09:12→14:24)
--- NOTE | 2020-04-08 10:29 | NUR ---
ANA met with the patient and his to follow up on home health preference. The patient and his chose [facility]. ANA contacted and faxed a referral to Lindy at [facility]. SW awaiting their screen. ANA also presented and read the IM form outloud to the patient's , Maddi. Maddi verbalized understanding and gave ANA approval to sign the form on his behalf. ANA provided him with a copy. ANA to continue to follow.
--- NOTE | 2020-04-08 11:18 | NUR ---
Lindy, at [facility], reports that they are able to accept the patient for services and that she will be contacting the patient's family to set up a time to come and see him. The patient is to discharge back home with his today, 04/08, with home health services for fpc/PT/OT from [facility]. ANA faxed the patient's d/c orders to [facility]. No additional needs at this time.
--- NOTE | 2020-04-08 12:40 | NUR ---
Patient off the floor for thoro at this time.
[2020-04-08 12:49] VITALS: BP 97/46; PULSE 88; TEMP 97.7
--- NOTE | 2020-04-08 17:10 | NUR ---
Discharge teaching completed with patient and . Discussed follow up appointments, labs, and medication changes. Questions asked and answered. Patient and verbalized understanding. Dressing on chest tube site reinforced with foam tape. Patient was assisted to dress and confirmed that all personal belongings were gathered. Patient escorted to ED entrance where he entered a private vehicle.
== END 2020-04-08 17:10 | disposition home or self-care (01) | DRG 433 ==
LOC: SDCO 11:04 → EDSTATUS 12:30 → SDCO 12:30 → SURG 16:03
PROVIDERS: Hospitalist; Internal Medicine; Internal Medicine Nephrology; Internal Medicine Pulmonary Disease; Physician Assistant; Surgery
PROC: 0W9B3ZZ Drainage of Left Pleural Cavity, Percutaneous Approach (ICD-10-PCS; 2020-03-31)
PROC: 0W9B30Z Drainage of Left Pleural Cavity with Drainage Device, Percutaneous Approach (ICD-10-PCS; principal; 2020-03-31 12:30)
DX: K70.31 Alcoholic cirrhosis of liver with ascites (principal); J94.2 Hemothorax; N17.9 Acute kidney failure, unspecified; I48.20 Chronic atrial fibrillation, unspecified; J90 Pleural effusion, not elsewhere classified; K21.9 Gastro-esophageal reflux disease without esophagitis; E03.9 Hypothyroidism, unspecified; N40.0 Benign prostatic hyperplasia without lower urinary tract symptoms; I25.10 Atherosclerotic heart disease of native coronary artery without angina pectoris; D64.9 Anemia, unspecified; R07.9 Chest pain, unspecified; I27.20 Pulmonary hypertension, unspecified; E87.6 Hypokalemia; I95.9 Hypotension, unspecified; G47.33 Obstructive sleep apnea (adult) (pediatric); I12.9 Hypertensive chronic kidney disease with stage 1 through stage 4 chronic kidney disease, or unspecified chronic kidney disease; N18.3 Chronic kidney disease, stage 3 (moderate); Z20.828 Contact with and (suspected) exposure to other viral communicable diseases; E66.9 Obesity, unspecified; D63.1 Anemia in chronic kidney disease; D69.6 Thrombocytopenia, unspecified; J44.9 Chronic obstructive pulmonary disease, unspecified; Z79.01 Long term (current) use of anticoagulants
CPT/HCPCS: 99232-AI; 99233-AI; 99239; A7041; A9284; G0378; J1170; J2704; J3010; J7040; P9047

== ENCOUNTER → 2020-04-15 | Outpatient (CLI) | payer MEDICARE, BC ==
[~2020-04-15] MED LIST changes: +LANOXIN 0.120.125 MG PO; +LASIX 20MG TABL20 MG PO; +LOPRESSOR 225 MG/TAB PO; +ZAROXOLYN 2.52.5 MG; +ZAROXOLYN 2.52.5 MG PO
== END ==
LOC: COL.RAD 10:40
DX: J90 Pleural effusion, not elsewhere classified (principal)

== ENCOUNTER 2020-04-16 15:48 | Inpatient (IN) | payer MEDICARE, BC ==
[~2020-04-16] VITALS: Ht 185.4 cm; Wt 84.2 kg
[~2020-04-16 15:48] MED LIST changes: -ZAROXOLYN 2.52.5 MG PO
[2020-04-16 17:43] VITALS: BP 116/44; PULSE 65; TEMP 98
[2020-04-16] MEDS ORDERED: BETAPACE 80MG80 MG PO (17:46)
[2020-04-16] MEDS ORDERED: LASIX 40MG TABL40 MG PO (17:48)
[2020-04-16] MEDS ORDERED: LASIX 20MG TABL20 MG PO (17:48)
[2020-04-16] MEDS ORDERED: ZAROXOLYN 2.52.5 MG PO (17:51)
[2020-04-16] MEDS ORDERED: COUMADIN 1MG1 MG/TAB PO (17:52)
[2020-04-16] MEDS ORDERED: COUMADIN 3MG3 MG/TAB PO ×2 (17:53→17:54)
[2020-04-16] MEDS ORDERED: COUMADIN 2MG2 MG/TAB PO (17:55)
[2020-04-16 18:22] LABS: BASO % 0.3 % (0.0-2.0); EOS % 0.4 % (0-4.0); GRAN # 8.5 (1.4-6.5); GRAN % 81.1 % (42.2-75.2); LYMPH # 0.6 (1.2-3.4); LYMPH % 5.4 % (20.0-51.0); MEAN CELL VOLUME 99 fl (80.0-100.0); MEAN CORPUSCULAR HGB CONC 32 g/dl (33.0-37.0); MONO # 1.2 (0.1-0.6); MONO % 11.8 % (1.7-9.3); PLATELET COUNT 240 K/mm3 (130-400); REDCELL DISTRIBUTION WIDTH-CV 15.7 % (11.5-14.5)
[2020-04-16 18:24] LABS: HEMATOCRIT 25.8 % (42.0-52.0); HEMOGLOBIN 8.2 g/dl (13.5-18.0); MEAN CORPUSCULAR HEMOGLOBIN 32 pg (27.0-31.0)
[2020-04-16 18:35] LABS: ALBUMIN 2.4 gm/dL (3.5-5.0); CALCIUM 7.9 mg/dL (8.4-10.2); CREATININE, serum 2.1 (0.66-1.25); POTASSIUM 4.3 mmol/L (3.4-5.0); TOTAL PROTEIN 5.9 gm/dL (6.4-8.2)
[2020-04-16 18:36] LABS: INR 1.5 (0.8-3.0); PROTHROMBIN TIME 17.1 SECONDS (9.7-12.8)
[2020-04-16 18:52] LABS: COLLECTION METHOD CLEAN CATCH
[2020-04-16 19:00] LABS: MUCOUS Present /lpf; PH 5 (5-8); SQUAMOUS EPITHELIAL 0-2 /hpf; URINE APPEARANCE Hazy; URINE BACTERIA None Seen /hpf; URINE BILIRUBIN Negative (NEGATIVE); URINE BLOOD Negative (NEGATIVE); URINE COLOR Yellow; URINE GLUCOSE Negative (NEGATIVE); URINE KETONE Negative (NEGATIVE); URINE LEUKOCYTE ESTERASE 1+ (NEGATIVE); URINE NITRATE Negative (NEGATIVE); URINE PROTEIN(semi-quant) Negative (NEGATIVE); URINE UROBILINOGEN Negative (NEGATIVE)
[2020-04-16 20:21] VITALS: BP 115/47; PULSE 73; TEMP 98.1
[2020-04-16] MEDS ORDERED: LANOXIN 0.120.125 MG PO (20:22)
[2020-04-16] MEDS ORDERED: LOPRESSOR 225 MG/TAB PO (20:23)
[2020-04-16 21:35] LABS: IRON,SERUM 30 ug/dL (35-150)
[2020-04-16 21:44] LABS: TOTAL IRON BINDING CAPACITY 198 ug/dL (261-462)
--- NOTE | 2020-04-16 22:00 | NUR ---
Talked with Dr. Ramos about pt medications. I contacted Pt Maddi and she verified all the pt medications with me over the phone. Pt only remembered a few medications that he usually takes. Pt has voided tonight and the pt was bladder scanned at this time. The pt had 300 output and 200 in bladder. Pt has his call light within reach and his bed is in lowest position.
--- NOTE | 2020-04-16 23:30 | NUR ---
Called to get pt Epoetin Jenaro-epbx 10,000 units from warehouse inventory clerk. When trying to scan this medication the emar stated that this medication was not allowed. I was aware that this was a one time dose but the medication would not scan. After looking over the orders the medications status showed discontinued. The pt had 2 one time dose medication but this medication would not scan. Myself and the charge nurse and housesupervior looked over the medication in the emar. I did not give this medication due to the medication not scanning and telling me that it was not allowed. Pt took all other medications. He did refuse to take digoxin because he stated that he had taken it already today. Pt is currently in bed and has his call light within reach and his bed is in lowest position.
[2020-04-17] VITALS (13 sets, daily range): BP systolic 91–118; BP diastolic 40–62; PULSE 64–125; TEMP 97.6–98.7
--- NOTE | 2020-04-17 03:19 | NUR ---
Pt currently sleeping in bed. Pt has a new IV placement, pt has a 22G in his right hand. Pt tolerated this well. Pt has slept well with his CPap during he night. Pt has his call light within reach, did get up and urinate a couple of time. Pt urinate about 300 at around 2100 I bladder scanned the pt as he had about 200 left in his bladder. Pt did received help with getting himself cleaned because he has has a little incontinence tonight. He also was assisted with removing his dentures and putting them in his cup before bed. Pt has his call light within reach and due to pt being a little weak I have the bed alarm on in case he forgets to call.
--- NOTE | 2020-04-17 07:30 | NUR ---
Called Dr. Ramos this morning and explain to him about how the medicaton would not scan. I also asked him if he still wanted the pt to have the medication this morning. He stated that he did want the medication given and wanted a new order for the same medication put in. The new order was put in at this time. I notified FLO Lafleur at this time. Currently she stated that Pharmacy did bring the medication up to her. The medication that I still have Pharmacy wanted the medication wasted. I was not able to record the waste in the icell so the medication was wasted. Radha in pharmacy is aware of everything and agree on a note to explain me wasting the medication because she stated it had been longer than four hours that the medication had been drawn up.
--- NOTE | 2020-04-17 08:00 | NUR ---
Patient resting in bed, at bedside. Patient is alert and oriented, states he is ready to have his HD catheter placed. Patient denies needs, call light within reach.
--- NOTE | 2020-04-17 08:26 | NUR ---
TB skin test given. Aplisol (tuberculin purified protein derivative) 0.1 ml intradermal given in right forearm with wheal formation; lot #[id number], exp. 05/09/20.
--- NOTE | 2020-04-17 11:00 | NUR ---
Patient returned to floor from PACU via bed. Patient is sleepy but rouses easily, alert and oriented while awake. Patient denies pain or nausea. Post op checks initiated. at bedside. Patient denies needs, call light within reach.
--- NOTE | 2020-04-17 12:35 | NUR ---
Behavioral Health Worker stopped by and visited with patient. Nothing else needed at this time. Patient had just come out of procedure and spouse was in room.
--- NOTE | 2020-04-17 13:23 | NUR ---
Plan: To return home with spouse Prerna . Assessment: SW met with patient and in the room. Patient gave permission to talk to SW about care. reports that the patient uses a walker as needed. shares that the patient uses a CPAP nightly. shares they obtain medications from [facility]. PCP is Kriss Cruz at [facility]. reports that POA is on file. Patient has [facility] for Home health and will need a [facility] upon DC. Transport will be done by . Action: SW will need to fax [facility] for Home health with [facility] when patient DC. No additonal needs identified.
--- NOTE | 2020-04-17 18:05 | NUR ---
Patient eating dinner at this time. Patient remains alert and oriented, denies pain. HD catheter in place, no evidence of bleeding or hematoma. Patient continues to deny needs, call light within reach.
--- NOTE | 2020-04-17 20:05 | NUR ---
Received report from FLO Lafleur. Pt has is currently resting in bed. Pt has his call light within reach and his bed is in lowest position.
[2020-04-18 00:21] VITALS: BP 108/37; PULSE 68; TEMP 98
--- NOTE | 2020-04-18 01:18 | NUR ---
Pt currently sleeping in bed. Pt has no complaints of pain at this time. Pt has his call light within reach. Pt has voided a couple of times and has not had a residual of over 400. Pt linens were change due to some incontinence that the pt was having.
[2020-04-18 04:17] VITALS: BP 109/44; PULSE 74; TEMP 98.1
[2020-04-18 06:25] LABS: BASO % 0.4 % (0.0-2.0); EOS % 0.4 % (0-4.0); GRAN # 8.2 (1.4-6.5); LYMPH # 0.7 (1.2-3.4); LYMPH % 6.8 % (20.0-51.0); MEAN CELL VOLUME 100 fl (80.0-100.0); MEAN CORPUSCULAR HGB CONC 32 g/dl (33.0-37.0); MEAN PLATELET VOLUME 9.3 fl (7.4-10.4); MONO # 1.3 (0.1-0.6); MONO % 12.2 % (1.7-9.3); PLATELET COUNT 251 K/mm3 (130-400); REDCELL DISTRIBUTION WIDTH-CV 15.6 % (11.5-14.5)
[2020-04-18 06:41] LABS: HEMOGLOBIN 8.6 g/dl (13.5-18.0); MEAN CORPUSCULAR HEMOGLOBIN 32 pg (27.0-31.0)
--- NOTE | 2020-04-18 06:45 | NUR ---
Pt currently resting in bed. Pt was given Tylenol this morning for a stomach ache. Pt did take the Tylenol and a warm blanket was applied to his abdomen at this time. He has his call light within reach and his bed alarm is on because he was a little weak the last time he go up.
[2020-04-18 06:51] LABS: CALCIUM 7.8 mg/dL (8.4-10.2); POTASSIUM 3.9 mmol/L (3.4-5.0)
[2020-04-18 06:58] LABS: INR 1.6 (0.8-3.0); PROTHROMBIN TIME 17.5 SECONDS (9.7-12.8)
--- NOTE | 2020-04-18 08:00 | NUR ---
Patient resting in bed at this time. Patient is alert and oriented, answers questions appropriately. Assisted patient with inserting dentures so he can eat breakfast. Patient states that his back is hurting this morning and requests PRN tylenol with morning meds, will administer per order.
[2020-04-18 08:26] VITALS: BP 107/38; PULSE 78; TEMP 98.1
[2020-04-18 10:55] LABS: TRANSFERRIN 109 mg/dL (163-344)
[2020-04-18 11:15] LABS: HEPATITIS B SURFACE ANTIBODY <2.0 (()); HEPATITIS B SURFACE ANTIGEN Negative (Negative); HEPATITIS C VIRUS ANTIBODY Negative (Negative)
[2020-04-18 11:53] VITALS: BP 103/38; PULSE 76; TEMP 98.4
[2020-04-18 17:01] VITALS: BP 99/39; PULSE 62; TEMP 98.7
--- NOTE | 2020-04-18 17:26 | NUR ---
Patient resting in bed at this time. Patient is alert and oriented, at bedside. Patient c/o SOA earlier, assessment showed clear lung sounds and unlabored breathing, bilateral rise and fall of chest. VS were WNL, SpO2 was 93-95% on room air. Applied 1L O2 via NC and called RT to assess. Patient stated he felt better with the oxygen on. Denies further needs at this time, call light within reach.
[2020-04-18 19:27] VITALS: BP 102/47; PULSE 63; TEMP 98.1
[2020-04-19 00:31] VITALS: BP 111/39; PULSE 61; TEMP 98.1
--- NOTE | 2020-04-19 01:09 | NUR ---
RESTING QUIETLY/SLEEPING. NO N/V. TYLENOL AT H.S. TO HELP HIM SLEEP AND WITH OCCAS. BACK DISCOMFORT.
[2020-04-19 03:04] VITALS: BP 108/34; PULSE 70; TEMP 98.3
[2020-04-19 07:30] LABS: BASO % 0.3 % (0.0-2.0); EOS # 0.1 (0.0-0.7); EOS % 0.5 % (0-4.0); GRAN % 81.8 % (42.2-75.2); LYMPH # 0.6 (1.2-3.4); LYMPH % 5.8 % (20.0-51.0); MEAN CELL VOLUME 100 fl (80.0-100.0); MEAN CORPUSCULAR HGB CONC 32 g/dl (33.0-37.0); MEAN PLATELET VOLUME 8.7 fl (7.4-10.4); MONO # 1.2 (0.1-0.6); MONO % 10.5 % (1.7-9.3); PLATELET COUNT 243 K/mm3 (130-400); RED BLOOD COUNT 2.76 M/mm3 (4.20-5.60); REDCELL DISTRIBUTION WIDTH-CV 15.8 % (11.5-14.5)
[2020-04-19 07:34] LABS: HEMATOCRIT 27.5 % (42.0-52.0); HEMOGLOBIN 8.9 g/dl (13.5-18.0); MEAN CORPUSCULAR HEMOGLOBIN 32 pg (27.0-31.0)
[2020-04-19 07:45] VITALS: BP 111/43; PULSE 80; TEMP 97.9
[2020-04-19 07:47] LABS: CALCIUM 7.6 mg/dL (8.4-10.2); CREATININE, serum 2.02 (0.66-1.25); POTASSIUM 3.9 mmol/L (3.4-5.0)
--- NOTE | 2020-04-19 09:00 | NUR ---
Patient alert and oriented, answers questions appropriately. See assessment. No c/o pain or discomfort. Activity/exercises reviewed with patient. Dialysis catheter to right chest wall with dressing CDI. No c/o at this time.
--- NOTE | 2020-04-19 12:23 | NUR ---
First visit from the occupational health technician. No needs right now.
[2020-04-19 12:32] VITALS: BP 104/39; PULSE 80; TEMP 98.1
--- NOTE | 2020-04-19 13:30 | NUR ---
Biomedical Equipment Specialist met with the patient and his , Prerna to revisit the discharge plan. The plan is to return home with [facility]. Prerna states that the patient had three visits from [facility] prior to hospitalization since he is new to services. The patient has not been able to work with PT but it is ordered. ANA addressed this. Prerna reports the patient has walked to the toilet with assistance from the nurse. The patient and Prerna inquired about the [facility], private duty services, and other options for care. The patient would like to know all available options for care. ANA discussed options. SW provided information for the patient and his . SW staffed with the patient's nurse regarding the assistance he needs. She states the patient is standby assist. He gets worn out quickly and does not move too fast. Will continue to monitor.
[2020-04-19 15:53] VITALS: BP 106/44; PULSE 65; TEMP 98.2
--- NOTE | 2020-04-19 19:25 | NUR ---
Checked right arm post TB test. No noted reddness or induration.
[2020-04-19 20:35] VITALS: BP 146/46; PULSE 80; TEMP 98.6
--- NOTE | 2020-04-19 21:00 | NUR ---
Pt currently sitting up in bed. Pt did stated that his throat was very dry. Pt stated that during the day he had a hard time swallowing. I asked pt if he was ok if we tried sitting him up just to see how he tolerated water. Pt did well with the water. Pt vitals were within normal limits. Pt was hoarse and after water this seemed to be getting better. Pt also agreed to try to take a spoon full of applesauce. Pt asked if he could eat the whole cup. Pt tolerated the applesauce well. Pt is currently sitting up in bed because I wanted to be safe. Pt has his call light within reach and his bed is in lowest position.
[2020-04-20 00:07] VITALS: BP 112/43; PULSE 80; TEMP 98
[2020-04-20 04:50] VITALS: BP 97/72; PULSE 85; TEMP 98.4
--- NOTE | 2020-04-20 05:28 | NUR ---
Pt currently sitting up in bed. Pt was able to take his pill this morning. He has had some coughing after taking his pill. Pt is currently sitting up in bed. Pt has been able to drink water but has had trouble swallowing his pills. He swallows them but afterwards he begins to cough. Pt does have suction at his bedside. Pt has his call light within reach and his bed is in lowest positon. Pt alarm is on just because pt is weak and want to make sure that he has help when he gets up.
[2020-04-20 09:04] LABS: BASO # 0.1 (0.0-0.2); BASO % 0.4 % (0.0-2.0); EOS % 0.3 % (0-4.0); GRAN # 11.5 (1.4-6.5); HEMATOCRIT 28.5 % (42.0-52.0); HEMOGLOBIN 9.2 g/dl (13.5-18.0); LYMPH # 0.7 (1.2-3.4); MEAN CELL VOLUME 101 fl (80.0-100.0); MEAN CORPUSCULAR HEMOGLOBIN 33 pg (27.0-31.0); MEAN CORPUSCULAR HGB CONC 32 g/dl (33.0-37.0); MEAN PLATELET VOLUME 8.7 fl (7.4-10.4); MONO # 1.3 (0.1-0.6); MONO % 9.4 % (1.7-9.3); PLATELET COUNT 243 K/mm3 (130-400); RED BLOOD COUNT 2.82 M/mm3 (4.20-5.60); REDCELL DISTRIBUTION WIDTH-CV 15.9 % (11.5-14.5)
[2020-04-20 09:12] VITALS: BP 115/52; PULSE 82; TEMP 97.7
[2020-04-20 09:16] LABS: CREATININE, serum 1.73 (0.66-1.25)
--- NOTE | 2020-04-20 10:08 | NUR ---
Costing Analyst staffed with Dr. Rachel Barger' nurse. The patient will have dialysis today 04/20, and likely tomorrow 04/21. Will continue to monitor.
--- NOTE | 2020-04-20 10:37 | NUR ---
Patient alert and oriented, answers questions appropriately. See assessment. Dialysis catheter to right chest with dressing CDI. Lungs coarse in bases, clear in upper lobes. Bases clear with cough. CDB encouraged. Redness noted to coccyx, bilateral buttocks. Education provided regarding repositioning and ambulation. No c/o at this time.
[2020-04-20 11:23] VITALS: BP 111/53; PULSE 79; TEMP 97.7
[2020-04-20 16:29] VITALS: BP 133/48; PULSE 88; TEMP 97.4
[2020-04-20 19:22] VITALS: BP 128/53; PULSE 79; TEMP 99.7
[2020-04-21] VITALS (7 sets, daily range): BP systolic 103–134; BP diastolic 37–72; PULSE 69–85; TEMP 97.6–98.8
--- NOTE | 2020-04-21 05:44 | NUR ---
Patient has rested well throughout the night. At the beginning of the night, patient was impulsive and confused. Patient takes his medications whole with applesauce. Ambulates with one assist to the bathroom. Wears CPAP at night. Patient has bilateral buttocks wounds and they are covered by mepilex. Denies pain throughout the night. INT to right hand noted and flushes with ease. Right chest dialysis catheter present. Dressing is CDI. Bed alarm on and fall risk precautions in place for patient d/t intermittent confusion. Will continue to monitor.
[2020-04-21 09:11] LABS: BASO % 0.3 % (0.0-2.0); EOS % 0.3 % (0-4.0); GRAN # 9.4 (1.4-6.5); GRAN % 83.4 % (42.2-75.2); LYMPH # 0.6 (1.2-3.4); LYMPH % 5.7 % (20.0-51.0); MEAN CELL VOLUME 102 fl (80.0-100.0); MEAN CORPUSCULAR HGB CONC 32 g/dl (33.0-37.0); MEAN PLATELET VOLUME 8.7 fl (7.4-10.4); MONO # 1.1 (0.1-0.6); MONO % 9.4 % (1.7-9.3); PLATELET COUNT 191 K/mm3 (130-400); RED BLOOD COUNT 2.55 M/mm3 (4.20-5.60)
[2020-04-21 09:12] LABS: HEMOGLOBIN 8.2 g/dl (13.5-18.0); MEAN CORPUSCULAR HEMOGLOBIN 32 pg (27.0-31.0)
[2020-04-21 09:32] LABS: CALCIUM 7.9 mg/dL (8.4-10.2); CREATININE, serum 1.69 (0.66-1.25); POTASSIUM 3.9 mmol/L (3.4-5.0)
--- NOTE | 2020-04-21 14:47 | NUR ---
CALLED ON THE PATIENTS METOPROLOL. PATIENTS BLOOD PRESSURES HAVE BEEN LOW THIS MORNING AND AFTERNOON. DECREASE METOPROLOL FROM 25MG TID TO 12.5MG BID STARTING TONIGHT TORB FROM TO THIS NURSE.
--- NOTE | 2020-04-21 14:51 | NUR ---
Supervisor Gelatin Plant met with the patient and his to revisit the discharge plan. The plan is to return home with [facility]. The patient is to have a full dialysis session tomorrow, 04/22. Will continue to follow.
--- NOTE | 2020-04-21 18:34 | NUR ---
PATIENT HAS DENIED PAIN THROUGHOUT THE SHIFT. PATIENTS PRESENT AT THE BEDSIDE THROUGHOUT THE DAY. HAS ASSISTED IN TURNING THE PATIENT EVERY TWO HOURS, REPOSITIONING IN BED, AND HELPING THE PATIENT GET UP TO THE CHAIR IN THE AFTERNOON. CALL LIGHT WITHIN REACH. PATIENT AND DENY ANY NEEDS AT THIS TIME. WILL REPORT OFF TO NIGHT NURSE.
--- NOTE | 2020-04-21 20:27 | NUR ---
Resting in bed. Assessment complete. Bases diminished otherwise clear. Heart sounds normal. Bowels active x4-ABD distended but soft. Bilateral lower ext edema +1. INT right hand flushed without complications. Patient has erythema to coccyx-blanchable replaced mepilex. Denies pain. Denies other needs at this time. Bed alarm in place. Call light in reach.
--- NOTE | 2020-04-21 23:00 | NUR ---
PLACED PT ON HOME CPAP EVERYTHING HOOKED UP CORRECTLY. ONCE ON COULD HEAR A HUGE LEAK EVEN WITH CPAP MASK ON AND TIGHTENED UP. FOUND BIG LEAK AT THE TUBGING. PT WANTING TO WEAR CPAP HOWEVER, PTS CPAP WOULD NOT BE WORKING APPROPIATLEY. THEREFORE, PT AGREED TO USING ONE OF THE HOSPITALS CPAPS. PLACED PT ON AUOT CPAP WITH A NASAL MASK. PT WAS ON AND KASIA WELL WITH NO DISTRESS NOTED A THIS TIME
--- NOTE | 2020-04-21 23:34 | NUR ---
Up to restroom and returned to bed. Denies needs. Call light in reach.
--- NOTE | 2020-04-22 01:20 | NUR ---
UP to restroom and returned to bed. Denies needs. Call light in reach.
[2020-04-22 03:18] VITALS: BP 122/43; PULSE 78; TEMP 98
--- NOTE | 2020-04-22 03:46 | NUR ---
Reports 5/10 back pain. Repositioned. Provided with PRN tylenol. Denies needs. Call light in reach.
--- NOTE | 2020-04-22 06:00 | NUR ---
Patient required x dose of tylenol for back pain throughout night. Otherwise uneventful night. Resting in bed this AM. Patient had 2 formed stools during night.
--- NOTE | 2020-04-22 07:07 | NUR ---
Report given to FLO Lafleur
[2020-04-22 07:26] VITALS: BP 114/44; PULSE 92; TEMP 97.4
--- NOTE | 2020-04-22 07:30 | NUR ---
Patient resting in bedside recliner eating breakfast at this time. Patient is alert and oriented, answers questions appropriately. Patient states he is feeling well this morning, is breathing easier. Patient reports that his CPAP tubing has a tear in it and he had to use a hospital machine last night, which he found very uncomfortable and had trouble sleeping. Called patient's about CPAP tubing and she states she will try to get replacement tubing for it before she comes to visit today. Patient denies further needs, call light within reach.
[2020-04-22 08:23] LABS: BASO % 0.3 % (0.0-2.0); EOS # 0.1 (0.0-0.7); EOS % 0.7 % (0-4.0); GRAN # 8.5 (1.4-6.5); LYMPH # 0.7 (1.2-3.4); LYMPH % 6.8 % (20.0-51.0); MEAN CELL VOLUME 101 fl (80.0-100.0); MEAN CORPUSCULAR HGB CONC 32 g/dl (33.0-37.0); MEAN PLATELET VOLUME 8.9 fl (7.4-10.4); MONO % 9.4 % (1.7-9.3); PLATELET COUNT 205 K/mm3 (130-400); RED BLOOD COUNT 2.59 M/mm3 (4.20-5.60); REDCELL DISTRIBUTION WIDTH-CV 15.9 % (11.5-14.5)
[2020-04-22 08:34] LABS: HEMATOCRIT 26.2 % (42.0-52.0); HEMOGLOBIN 8.3 g/dl (13.5-18.0); MEAN CORPUSCULAR HEMOGLOBIN 32 pg (27.0-31.0)
--- NOTE | 2020-04-22 08:35 | NUR ---
PATIENT ON RA. RESP TX GIVEN IN DIALYSIS, KASIA WELL.
[2020-04-22 08:47] LABS: CALCIUM 7.9 mg/dL (8.4-10.2); CREATININE, serum 1.83 (0.66-1.25); POTASSIUM 3.7 mmol/L (3.4-5.0)
--- NOTE | 2020-04-22 09:36 | NUR ---
Patient resting in bed at this time. Patient is alert and oriented, answers questions appropriately. Patient reports that she is feeling well today, denies pain or compaints. Discussed with patient the need to get a different phone number for [facility] wound care so we can get instructions for her dressing changes. She states that they can be hard to get in touch with, but her may have a different phone number, she states that if you leave a message they ususally call back. Ensured patient had soft touch call light in good position so it could be used if she needs anything. Patient denies current needs.
--- NOTE | 2020-04-22 14:58 | NUR ---
Patient repositioned from back to left side. Patient a little disgruntled about not being able to lay on back, understands why and will lay this way as long as he can and then push his call light when he needs repositioned. Mepilex to sore on bottom, patient does not want it messed with at this time as it causes him discomfort. Fresh water provided. Patient denies further needs.
[2020-04-22 16:04] VITALS: BP 107/48; PULSE 82; TEMP 97.5
--- NOTE | 2020-04-22 17:01 | NUR ---
Removed mepilex from sacral area. Bottock is a little red. Some skin discoloration but says that is due to sebaceous cysts that he has had in the past. Does have soreness to sacral area. No open areas noted. New mepilex applied. Patient would like to get in chair for dinner. Minimal assist of one and use of walker for transfer to chair. Patient denies additional needs at this time. remains in room with the patient.
--- NOTE | 2020-04-22 18:10 | NUR ---
Patient lying in bed with eyes open watching TV. Denies pain. Says that he is tired and ready for bed. in room with the patient. Patient denies any concerns or additional needs at this time.
[2020-04-22 20:00] VITALS: BP 115/41; PULSE 90; TEMP 99
--- NOTE | 2020-04-22 20:00 | NUR ---
Pt currently resting in bed. Pt has his call light within reach. Pt has no complaints of pain at this time. Pt did use the urinal at this time. Pt stated that he does not have any pain. He had complaints of having a dry mouth so pt was given fresh ice water at this time.
--- NOTE | 2020-04-22 20:03 | NUR ---
PTS TUBING ON OWN HOME CPAP IS FIXED. WILL TAKE OUT HOSPITAL CPAP. PT WILL WEAR HOME CPAP.
[2020-04-23] VITALS: BP 111/41; PULSE 82; TEMP 97.6
[2020-04-23 04:00] VITALS: BP 129/36; PULSE 64; TEMP 98.1
--- NOTE | 2020-04-23 06:54 | NUR ---
Reported off to Miriam Lafleur. Pt has his call light within reach. Pt is currently sitting at bedside eating his breakfast.
[2020-04-23 08:33] VITALS: BP 113/38; PULSE 92; TEMP 98.4
[2020-04-23 12:56] VITALS: BP 110/45; PULSE 73; TEMP 97.7
--- NOTE | 2020-04-23 13:52 | NUR ---
Assistant Professor Of Business faxed updates to Charlette at [facility].
[2020-04-23 16:44] VITALS: BP 104/38; PULSE 76; TEMP 97.8
--- NOTE | 2020-04-23 18:17 | NUR ---
Patient resting in bed at this time, at bedside. Patient has been alert and oriented today, no complaints of pain. Patient has taken PO medications whole with apple sauce and has had no complications. Denies needs at this time, call light within reach.
[2020-04-23 19:06] VITALS: BP 118/45; PULSE 82; TEMP 97.5
[2020-04-24] VITALS: BP 108/44; PULSE 78; TEMP 98.9
--- NOTE | 2020-04-24 02:08 | NUR ---
Pt currently resting in bed. Pt was a little confused when I went in to check on him. Pt stated that he was in his room at home and wasn't sure how I was in his room. Pt was really nice about it bu you could see that he was confused. Pt has his call light within reach and his bed is in lowest position. I did turn pt bed alarm on because he has had times where he is confused.
--- NOTE | 2020-04-24 03:50 | NUR ---
Pt has slept well all night. I did assist pt a couple of time with the urinal. Pt has not drink much during the night. Pt has his call light within reach and his bed is in lowest position. I still have the alarm on due to some confusion with pt.
[2020-04-24 04:00] VITALS: BP 102/50; PULSE 75; TEMP 98.2
[2020-04-24 07:04] VITALS: BP 117/45; PULSE 80; TEMP 98.2
--- NOTE | 2020-04-24 09:32 | NUR ---
Patient taken to dialysis in chair, Shadia dialysis nurse will care for patient. Patient given a full bath bath this am. Fresh linens & new underwear on. Patient had some incontinence of stool, extensive pericare provided. mepilex in place. No open areas to coccyx, but reddened. lotion to dry flaky skin. Patient ambulated to bathroom, with walker. Steady gait-dyspnea with exertion. Dilaysis cath to right chest drg CDI. Left arm restricted for future fistula.
[2020-04-24 12:43] LABS: BASO % 0.3 % (0.0-2.0); EOS # 0.1 (0.0-0.7); EOS % 0.4 % (0-4.0); GRAN # 9.7 (1.4-6.5); GRAN % 83.5 % (42.2-75.2); HEMATOCRIT 27.3 % (42.0-52.0); HEMOGLOBIN 8.6 g/dl (13.5-18.0); LYMPH # 0.7 (1.2-3.4); LYMPH % 5.8 % (20.0-51.0); MEAN CELL VOLUME 101 fl (80.0-100.0); MEAN CORPUSCULAR HEMOGLOBIN 32 pg (27.0-31.0); MEAN CORPUSCULAR HGB CONC 32 g/dl (33.0-37.0); MEAN PLATELET VOLUME 9.2 fl (7.4-10.4); MONO # 1.1 (0.1-0.6); MONO % 9.4 % (1.7-9.3); PLATELET COUNT 232 K/mm3 (130-400); RED BLOOD COUNT 2.71 M/mm3 (4.20-5.60); REDCELL DISTRIBUTION WIDTH-CV 16.2 % (11.5-14.5)
[2020-04-24 12:56] LABS: ALBUMIN 2.3 gm/dL (3.5-5.0); CALCIUM 7.8 mg/dL (8.4-10.2); CREATININE, serum 2.17 (0.66-1.25); PHOSPHOROUS 4.2 mg/dL (2.5-4.5); POTASSIUM 4.1 mmol/L (3.4-5.0)
--- NOTE | 2020-04-24 14:48 | NUR ---
Patient resting in bed since dialysis. His at bedside. Patient reports being cold & tired. Warm blankets provided. He had no interest in lunch. Did make him a nephro milkshake encouraged some kind of oral intake. Rober nguyen.
[2020-04-24 15:59] VITALS: BP 100/43; PULSE 71; TEMP 97.8
--- NOTE | 2020-04-24 17:40 | NUR ---
Patient rested most of the afternoon. Sitting up for dinner, he had an appetite. Rober nguyen.
[2020-04-24 19:37] VITALS: BP 109/52; PULSE 77; TEMP 98.4
--- NOTE | 2020-04-24 20:00 | NUR ---
Report received, assumed care for seamless hosiery knitter. Assessment complete. A&Ox3-drowsy. Denies pain/nausea. Shortness of breath with activity. VS stable. INT to right hand flushes without difficulty. Dialysis cath to right chest-dressing CDI-flushes well with good blood return. Coccyx noted to be red-mepilex dressing in place. Bilat lower ext +1 edema. Fluid restriction of 1500mls enforced. Denies current needs. Call light in reach/bed alarm on will monitor.
[2020-04-25] VITALS (7 sets, daily range): BP systolic 86–117; BP diastolic 40–48; PULSE 75–98; TEMP 97.6–98.9
--- NOTE | 2020-04-25 00:20 | NUR ---
Set off bed alarm. This nurse to room-undressed self and was requesting to not wear a gown due to being hot. Assisted with removal and back to bed at this time-CPAP on. Call light in reach/bed alarm on. Will monitor.
--- NOTE | 2020-04-25 04:49 | NUR ---
Has been restless this shift-setting off bed alarm several times. States time is going so slowly and hes ready to get the day started. Denied pain/nausea/shortness of breath. Fluid restriction enforced. Pills taken with applesauce without difficutly. Denies needs. Call light in reach/bed alarm on. Will monitor.
--- NOTE | 2020-04-25 09:29 | NUR ---
PATIENT ASSESSMENT COMPLETED AT THIS TIME. PATIENT IS SITTING UP IN THE BEDSIDE CHAIR. PRESENT IN THE ROOM. IRREGULAR HEART RHYTHM NOTED. TELE IN PLACE. VSS. PITTING EDEMA TO BLE. PATIENT REPORTS PAIN IN HIS LOW BACK AND BUTT. GIVEN PRN TYLENOL WITH MORNING MEDICATIONS PER PATIENT REQUEST. COCCYX DRESSING REMOVED AND REPLACED. COCCYX IS REDDENED. NO OPEN AREAS NOTED. RIGHT HAND TO INT. DIALYSIS CATH TO RIGHT CHEST. GAUZE TEGADERM DRESSING IN PLACE. CALL LIGHT WITHIN REACH. PATIENT DENIES ANY OTHER NEEDS AT THIS TIME.
--- NOTE | 2020-04-25 10:59 | NUR ---
PATIENT ASLEEP IN BED. PRESENT AT THE BEDSIDE. NO NEEDS AT THIS TIME.
[2020-04-25 12:07] LABS: INR 1.6 (0.8-3.0); PROTHROMBIN TIME 18.3 SECONDS (9.7-12.8)
--- NOTE | 2020-04-25 16:42 | NUR ---
REPORT GIVEN TO FLO BARCENAS.
[2020-04-26 04:00] VITALS: BP 110/59; PULSE 93; TEMP 98.8
--- NOTE | 2020-04-26 06:30 | NUR ---
Patient slept most the night. No complaints of pain or nausea. He got up a couple time to change positions and go to the bathroom. Trying to find out if patient is going to have a fistual placed today. Patient is NPO until we know for sure. No other changes at this time. Call light within reach.
[2020-04-26 08:04] VITALS: BP 112/45; PULSE 80; TEMP 97.7
--- NOTE | 2020-04-26 09:00 | NUR ---
Patient resting in bed, at bedside. Patient is alert and oriented, answers questions appropriately. Patient is a SBA to bathroom with walker, requires no physical help to stand, ambulate, or sit. Patient denies pain or needs at this time, call light within reach.
--- NOTE | 2020-04-26 10:19 | NUR ---
Follow-up visit; Patient and his thanked Porcelain Enamel Sprayer for stopping in and offering God's blessings and keeping Tito in her prayers. Patient declined prayer.
[2020-04-26 11:56] VITALS: BP 109/40; PULSE 78; TEMP 97.9
--- NOTE | 2020-04-26 17:50 | NUR ---
Patient returned from dialysis, resting in bed eating dinner at this time. Patient denies pain or needs, call light within reach.
[2020-04-26 22:57] VITALS: BP 102/45; PULSE 82; TEMP 98
[2020-04-27 03:35] VITALS: BP 109/49; PULSE 99; TEMP 98.2
--- NOTE | 2020-04-27 06:00 | NUR ---
Patient was more confused during the night than previous shifts. He kept taking his telemetry off and the last time he refused to put it back on. He stated he is not supposed to have it. No complaints of pain or nausea. He removed his dressing from his dialysis catheter. He thought it was an electrode. He did not pull on the chateter or do anything to it. Cleaned the catheter insertion site and placed a new tegaderm to the site. No other changes at this time. Call light within reach.
[2020-04-27 07:13] VITALS: BP 101/42; PULSE 86; TEMP 97.7
[2020-04-27 09:03] LABS: ALBUMIN 2.5 gm/dL (3.5-5.0); BILIRUBIN,TOTAL 2.3 mg/dL (0.0-1.0); CALCIUM 7.9 mg/dL (8.4-10.2); CREATININE, serum 3.06 (0.66-1.25); POTASSIUM 4.1 mmol/L (3.4-5.0); TOTAL PROTEIN 7.1 gm/dL (6.4-8.2)
[2020-04-27 11:16] VITALS: BP 110/38; PULSE 97; TEMP 97.5
--- NOTE | 2020-04-27 16:50 | NUR ---
Credit Clerk met with the patient's to revisit the discharge plan. The plan is to return home with [facility]. ANA presented the IM form. She understood and signed the form. A copy was provided to the patient and the original was placed in the chart. ANA faxed udpates to Charlette at [facility].
--- NOTE | 2020-04-27 18:35 | NUR ---
Patient returned from PACU at approximately 1620. Patient was drowsy but rousable. Patient was confused but was redirectible. VS WNL. Patient currently eating dinner. Call light within reach.
[2020-04-27 19:24] VITALS: BP 100/39; PULSE 71; TEMP 97.4
[2020-04-27 23:42] VITALS: BP 98/46; PULSE 79; TEMP 97.7
[2020-04-28 04:00] VITALS: BP 92/31; PULSE 54; TEMP 97.6
[2020-04-28 06:06] VITALS: BP 98/48; PULSE 84
--- NOTE | 2020-04-28 08:39 | NUR ---
(04/27)Dr. Ramos wrote a wheel chair order for the patient. ANA met with the patient's , Prerna to discuss the order. She would like to go through [facility]. ANA informed Prerna since the patient is ambulating with and without a walker the insurance may not cover the wc and they may have to private pay. She understood. The patient's niece, Dede Brown will likely be picking up the wc on 04/28. (04/28) ANA faxed order. ANA contacted Nimisha to inform her of the wc referral. ANA contacted Charlette with [facility] to inform her that the patient will discharge this day.
[2020-04-28 08:55] LABS: BASO % 0.2 % (0.0-2.0); EOS % 0.1 % (0-4.0); GRAN # 8.3 (1.4-6.5); GRAN % 81.1 % (42.2-75.2); HEMATOCRIT 27.2 % (42.0-52.0); HEMOGLOBIN 8.6 g/dl (13.5-18.0); LYMPH # 0.6 (1.2-3.4); LYMPH % 5.6 % (20.0-51.0); MEAN CELL VOLUME 100 fl (80.0-100.0); MEAN CORPUSCULAR HEMOGLOBIN 32 pg (27.0-31.0); MEAN CORPUSCULAR HGB CONC 32 g/dl (33.0-37.0); MEAN PLATELET VOLUME 8.9 fl (7.4-10.4); MONO # 1.2 (0.1-0.6); MONO % 12.1 % (1.7-9.3); PLATELET COUNT 170 K/mm3 (130-400); RED BLOOD COUNT 2.72 M/mm3 (4.20-5.60); REDCELL DISTRIBUTION WIDTH-CV 17.3 % (11.5-14.5)
[2020-04-28 09:05] LABS: ALBUMIN 2.2 gm/dL (3.5-5.0); CALCIUM 7.8 mg/dL (8.4-10.2); CREATININE, serum 4.7 (0.66-1.25); PHOSPHOROUS 6.4 mg/dL (2.5-4.5); POTASSIUM 4.6 mmol/L (3.4-5.0)
[2020-04-28] MEDS ORDERED: DIGITEK0.125 MG PO (11:28)
[2020-04-28] MEDS ORDERED: LOPRESSOR 225 MG/TAB PO (11:29)
[2020-04-28] MEDS ORDERED: TYLENOL 500MG500 MG PO (11:29)
[2020-04-28] MEDS ORDERED: LASIX 40MG TABL40 MG PO (11:30)
[2020-04-28 12:45] VITALS: BP 79/31; PULSE 107; TEMP 97.8
--- NOTE | 2020-04-28 13:52 | NUR ---
Patient to discharge to home with home health today. voices concerns r/t caring for patient at home as he becomes weaker and confused post dialysis. Offered to call social media intern for patient to discuss SNF with both patient and spouse adamantly refuse. Patient then states he feels he should go to [facility] at this time. States he doesn't feel the quality of life he has now is one he wants to continue with. Patient states "I feel like I'm giving up". Explained to patient that whatever decision he makes is not giving up, it's accepting. Patient states "I've lived a good life that I'm proud of". Spouse at bedside throughout conversation. Both patient and spouse request Palliative Care consult with possible admission to [facility]. Dr Ramos notified of patient request, orders received. Mel Dubon notified of consult.
--- NOTE | 2020-04-28 14:56 | NUR ---
I was called to talk with pt and his about hospice services today as he has decided to stop dialysis. reports that pt is very weak and confused after each dialysis and it takes him almost a day to improve to his "normal". At this point they are both in agreement that this is not the life that they want for him. They have requested to stop dialysis and go home with hospice. I tried to answer their questions about hospice services, the various hospice agencies that are available, and unfortunately the hospice house is full. We reviewed goals of hospice, services that they can provide with equipment and comfort medications included. would be the 24 caregiver but does have family member who could help out. They are wanting information on private pay gum rolling machine tender services. At this late hour, we will contact [facility], their first choice, and social services coordinator Lilli will set up care. Plan was for discharge today, would like to stay another night but states she can manage if they go home today.Pt will stop dialysis and being under hospice services at this point on. Nurse Lafleur has spoken with Dr Ramos and will follow up along with Lilli to facilitate a discharge either today or tomorrow.
--- NOTE | 2020-04-28 16:00 | NUR ---
Discharge teaching completed. Discussed plans for [facility] to do intake tomorrow morning, family to stay at home with them tonight to help. states she understands the plan and is comfortable with it. Recieved TORB for interventional radiology to pull hemodialysis catheter prior to discharge. Patient and escorted out to ED entrance, entered a private vehicle
--- NOTE | 2020-04-28 17:01 | NUR ---
The patient to discharge home with [facility] today, 04/28. The patient decided to go on hospice after dialysis this day. The patient and his wanted [facility] and a hospital bed. ANA faxed the referral to Philip with [facility]. They can accept and will do the intake on 04/29 0900. They will order the bed for the patient. ANA faxed discharge orders. The team and family were in agreeance with the above plan. There are no additional needs!
== END 2020-04-28 16:55 | disposition hospice, home (50) | DRG 674 ==
LOC: SURG 15:48
PROVIDERS: Nurse Practitioner; Registered Nurse; ADMIT Internal Medicine Nephrology
PROC: 0JH63XZ Insertion of Tunneled Vascular Access Device into Chest Subcutaneous Tissue and Fascia, Percutaneous Approach (ICD-10-PCS; 2020-04-17)
PROC: 02H633Z Insertion of Infusion Device into Right Atrium, Percutaneous Approach (ICD-10-PCS; 2020-04-17)
PROC: 5A1D70Z Performance of Urinary Filtration, Intermittent, Less than 6 Hours Per Day (ICD-10-PCS; 2020-04-24)
PROC: 03180ZD Bypass Left Brachial Artery to Upper Arm Vein, Open Approach (ICD-10-PCS; principal; 2020-04-28)
DX: N17.9 Acute kidney failure, unspecified (principal); J90 Pleural effusion, not elsewhere classified; T46.0X1A Poisoning by cardiac-stimulant glycosides and drugs of similar action, accidental (unintentional), initial encounter; I48.91 Unspecified atrial fibrillation; K74.60 Unspecified cirrhosis of liver; M54.9 Dorsalgia, unspecified; I95.9 Hypotension, unspecified; E83.41 Hypermagnesemia; D63.1 Anemia in chronic kidney disease; N18.6 End stage renal disease; L89.151 Pressure ulcer of sacral region, stage 1; Z87.891 Personal history of nicotine dependence
CPT/HCPCS: A9284; C1750; C1768; J0690; J1644; J2704; J3010; J7030; Q5105